=== PATIENT | male | born 1950 | race Caucasian/White ===

== ENCOUNTER 2016-11-30 05:42 | Inpatient (IN) | payer OTHER, MEDICAID ==
[2016-11-30 08:34] LABS: BASOPHILS # (AUTO) 0.1 X10^3/uL (0.0-0.1); BASOPHILS % (AUTO) 0.8 % (0.2-1.0); EOSINOPHILS # (AUTO) 0.1 x10^3/uL (0.0-0.2); EOSINOPHILS % (AUTO) 0.6 % (0.9-2.9); HEMATOCRIT 30.9 % (42.0-54.0); HEMOGLOBIN 9.8 g/dL (13.5-18.0); LYMPHOCYTES # (AUTO) 1.3 X10^3/uL (1.3-2.9); LYMPHOCYTES % (AUTO) 8.8 % (21.0-51.0); MEAN CORPUSCULAR HEMOGLOBIN 24.8 pg (27.0-34.0); MEAN CORPUSCULAR HGB CONC 31.8 g/dL (33.0-35.0); MEAN CORPUSCULAR VOLUME 78.1 fL (80.0-100.0); MEAN PLATELET VOLUME 8.2 fL (7.4-11.0); MONOCYTES # (AUTO) 1.1 x10^3/uL (0.3-0.8); MONOCYTES % (AUTO) 7.2 % (0.0-13.0); NEUTROPHILS # (AUTO) 12.7 x10^3/uL (2.2-4.8); NEUTROPHILS % (AUTO) 82.6 % (42.0-75.0); PLATELET COUNT 364 X10^3/uL (150.0-450.0); RED BLOOD COUNT 3.96 X10^6/uL (4.7-6.0); RED CELL DISTRIBUTION WIDTH 16.7 % (11.6-16.5); WHITE BLOOD COUNT 15.3 X10^3/uL (3.6-10.0)
[2016-11-30 08:43] LABS: ALBUMIN 2.6 g/dL (3.4-5.0); CALCIUM 9.6 mg/dL (8.5-10.1); COR CA(FOR HYPOALB) 10.7 mg/dL (8.5-10.1); CREATININE 5.71 mg/dL (0.70-1.30); TOTAL PROTEIN 9.3 g/dL (6.4-8.2)
[2016-11-30 08:46] LABS: MICROCYTOSIS SLIGHT; PLATELET MORPHOLOGY COMMENT NORMAL (NORMAL); STOMATOCYTES PRESENT
[2016-11-30] MEDS: NS 1000 ML 1,000 ML IV SCH ×2 (08:52→20:45)
[2016-11-30 09:20] LABS: CARBON DIOXIDE 14.6 mmol/L (21-32)
[2016-11-30 12:46] LABS: BILIRUBIN,URINE NEGATIVE (NEGATIVE); BLOOD/HEMOGLOBIN,URINE 5+ (NEGATIVE); GLUCOSE, URINE 3+ (NEGATIVE); KETONES,URINE NEGATIVE (NEGATIVE); LEUKOCYTE ESTERASE ,URINE 3+ (NEGATIVE); NITRITES,URINE NEGATIVE (NEGATIVE); PROTEIN,URINE 3+ (NEGATIVE); UROBILINOGEN,URINE NORMAL (NORMAL)
[2016-11-30] MEDS ORDERED: [UNRECOGNIZED DRUG - OTHER] PO PRN (12:56)
[2016-11-30] MEDS ORDERED: HUMULIN R SUBCUT PRN (13:02)
[2016-11-30] MEDS: HUMULIN R SC PRN ×3 (13:03→20:51)
[2016-11-30 13:06] LABS: AMORPHOUS SEDIMENT,UR 3+ /HPF (NEGATIVE); APPEARANCE,URINE CLOUDY (CLEAR); BACTERIA,URINE 1+ /HPF (NEGATIVE); COLOR,URINE YELLOW (YELLOW); RBC,URINE 50 - 75 /HPF (NEGATIVE); SQUAMOUS EPITHELIAL CELL,UR RARE /HPF (NEGATIVE)
[2016-11-30 13:07] LABS: MUCUS,URINE MODERATE /HPF (NEGATIVE)
[2016-11-30] MEDS: KLONOPIN TAB 0.5 MG PO PRN (13:27)
[2016-11-30] MEDS: NORCO 5/325 MG TAB PO PRN ×2 (13:27→20:44)
[2016-11-30] MEDS: PRILOSEC PO SCH (13:27)
[2016-11-30] MEDS: NICODERM PATCH 21 MG/24 HR TD SCH (13:30)
[2016-11-30] MEDS ORDERED: TOBRAMYCIN SULFATE 80 MG in NS 100 ML IV 100 ML IV ONE (19:39)
[2016-11-30] MEDS: ROCEPHIN VIAL 1 GM 1 GM in NS 50 ML IV + SPIKE MINIBAG* 50 ML IV SCH (20:42)
[2016-11-30] MEDS: REMERON PO SCH (20:44)
[2016-11-30] MEDS: SNACK - Diabetic Appropriate PO SCH (20:48)
[2016-11-30] MEDS: PATIENT'S HOME MEDICATION RESPIRATORY (Melatonin [Melatonin] 3 MG) PO SCH (20:53)
[2016-12-01] MEDS: KLONOPIN TAB 0.5 MG PO PRN ×3 (01:41→21:52)
[2016-12-01 06:31] LABS: BASOPHILS # (AUTO) 0.1 X10^3/uL (0.0-0.1); BASOPHILS % (AUTO) 0.4 % (0.2-1.0); EOSINOPHILS # (AUTO) 0.1 x10^3/uL (0.0-0.2); EOSINOPHILS % (AUTO) 0.6 % (0.9-2.9); HEMATOCRIT 27.4 % (42.0-54.0); HEMOGLOBIN 9.1 g/dL (13.5-18.0); LYMPHOCYTES # (AUTO) 1.1 X10^3/uL (1.3-2.9); MEAN CORPUSCULAR HEMOGLOBIN 25.5 pg (27.0-34.0); MEAN CORPUSCULAR HGB CONC 33.3 g/dL (33.0-35.0); MEAN CORPUSCULAR VOLUME 76.7 fL (80.0-100.0); MONOCYTES % (AUTO) 6.6 % (0.0-13.0); NEUTROPHILS # (AUTO) 12.9 x10^3/uL (2.2-4.8); NEUTROPHILS % (AUTO) 85.4 % (42.0-75.0); PLATELET COUNT 294 X10^3/uL (150.0-450.0); RED BLOOD COUNT 3.58 X10^6/uL (4.7-6.0); RED CELL DISTRIBUTION WIDTH 16.2 % (11.6-16.5); WHITE BLOOD COUNT 15.1 X10^3/uL (3.6-10.0)
[2016-12-01 06:52] LABS: ALBUMIN 2.4 g/dL (3.4-5.0); COR CA(FOR HYPOALB) 10.3 mg/dL (8.5-10.1); CREATININE 4.5 mg/dL (0.70-1.30); TOTAL PROTEIN 8.5 g/dL (6.4-8.2)
[2016-12-01 07:06] LABS: CARBON DIOXIDE 14.2 mmol/L (21-32)
[2016-12-01 07:25] LABS: HYPOCHROMASIA SLIGHT; PLATELET MORPHOLOGY COMMENT NORMAL (NORMAL)
[2016-12-01] MEDS: ROCEPHIN VIAL 1 GM 1 GM in NS 50 ML IV + SPIKE MINIBAG* 50 ML IV SCH (08:40)
[2016-12-01] MEDS: NORCO 5/325 MG TAB PO PRN ×2 (08:40→21:53)
[2016-12-01] MEDS: PRILOSEC PO SCH (08:40)
[2016-12-01] MEDS: NICODERM PATCH 21 MG/24 HR TD SCH (08:41)
--- NOTE | 2016-12-01 09:07 | CT ---
CT abdomen and pelvis without contrast Indication: Acute renal failure, dehydration, abdominal pain. Comparison: None Technique: CT images of the abdomen and pelvis were obtained without contrast. Automatic exposure co ntrol was utilized. Findings: Evaluation of the abdominal viscera is limited by lack of contrast and motion artifact. The visualized lung bases are clear. No aggressive osseous lesion is identified. The liver, gallbladder, spleen, stomach, duodenum, pancreas, adrenals, and kidneys demonstrate no si gnificant abnormality. No nephrolithiasis or hydronephrosis identified. A few mildly enlarged left p eriaortic lymph nodes are noted (for example axial images 19 and 25) , measuring approximately 1.1 c m in short axis. There is moderate distal colonic stool burden, although there is no evidence for shane wel obstruction. The urinary bladder is mostly collapsed around a Valentin catheter; nondependent bladd er gas is consistent with catheterization. No significant free fluid is seen. There is aortoiliac at herosclerosis, without evidence for aneurysm. Impression: 1. No acute process identified. There is moderate distal colonic stool burden. 2. Mildly enlarged periaortic lymph nodes, of uncertain etiology. Reported By:
--- NOTE | 2016-12-01 10:31 | US ---
Limited abdominal ultrasound Indication: Abdominal pain. Comparison: None Technique: Sonographic images of the abdomen were obtained. Findings: There is no cholelithiasis, gallbladder distention, wall thickening, or pericholecystic fl uid. No biliary dilation is observed; the common duct measured 4 mm in diameter. The visualized port ions of the liver, right kidney, and pancreas were unremarkable. Impression: Normal right upper quadrant ultrasound. Reported By:
[2016-12-01] MEDS: HUMULIN R SC PRN ×2 (12:17→17:30)
[2016-12-01] MEDS: NS 1000 ML 1,000 ML IV SCH (17:09)
[2016-12-01] MEDS ORDERED: TOPROL XL PO ONE (17:24)
[2016-12-01] MEDS: KAYEXALATE PO SCH ×2 (17:35→21:54)
[2016-12-01] MEDS: TOPROL XL PO SCH (17:36)
[2016-12-01] MEDS ORDERED: CELEXA PO SCH (21:00)
[2016-12-01] MEDS: REMERON PO SCH (21:53)
[2016-12-01] MEDS: CELEXA PO SCH (21:53)
[2016-12-01] MEDS: PATIENT'S HOME MEDICATION RESPIRATORY (Melatonin [Melatonin] 3 MG) PO SCH (21:54)
[2016-12-01] MEDS: SNACK - Diabetic Appropriate PO SCH (21:54)
[2016-12-02 05:50] LABS: ALBUMIN 2.4 g/dL (3.4-5.0); CALCIUM 9.2 mg/dL (8.5-10.1); COR CA(FOR HYPOALB) 10.5 mg/dL (8.5-10.1); CREATININE 3.71 mg/dL (0.70-1.30); TOTAL PROTEIN 8.6 g/dL (6.4-8.2)
[2016-12-02 05:51] LABS: BASOPHILS # (AUTO) 0.1 X10^3/uL (0.0-0.1); BASOPHILS % (AUTO) 1.1 % (0.2-1.0); EOSINOPHILS # (AUTO) 0.1 x10^3/uL (0.0-0.2); EOSINOPHILS % (AUTO) 1.2 % (0.9-2.9); HEMATOCRIT 28.2 % (42.0-54.0); HEMOGLOBIN 9.4 g/dL (13.5-18.0); LYMPHOCYTES # (AUTO) 1.2 X10^3/uL (1.3-2.9); LYMPHOCYTES % (AUTO) 10.3 % (21.0-51.0); MEAN CORPUSCULAR HEMOGLOBIN 25.5 pg (27.0-34.0); MEAN CORPUSCULAR HGB CONC 33.3 g/dL (33.0-35.0); MEAN CORPUSCULAR VOLUME 76.5 fL (80.0-100.0); MONOCYTES # (AUTO) 0.9 x10^3/uL (0.3-0.8); MONOCYTES % (AUTO) 7.7 % (0.0-13.0); NEUTROPHILS # (AUTO) 9.2 x10^3/uL (2.2-4.8); NEUTROPHILS % (AUTO) 79.7 % (42.0-75.0); PLATELET COUNT 327 X10^3/uL (150.0-450.0); RED BLOOD COUNT 3.68 X10^6/uL (4.7-6.0); RED CELL DISTRIBUTION WIDTH 16.2 % (11.6-16.5); WHITE BLOOD COUNT 11.6 X10^3/uL (3.6-10.0)
[2016-12-02 06:08] LABS: PLATELET MORPHOLOGY COMMENT NORMAL (NORMAL)
[2016-12-02 06:09] LABS: HYPOCHROMASIA SLIGHT
[2016-12-02 06:11] LABS: MICROCYTOSIS SLIGHT
[2016-12-02] MEDS: NS 1000 ML 1,000 ML IV SCH ×4 (06:18→21:17)
[2016-12-02] MEDS ORDERED: TOPROL XL PO ONE (08:19)
[2016-12-02] MEDS: KLONOPIN TAB 0.5 MG PO PRN ×2 (08:35→20:15)
[2016-12-02] MEDS: PRILOSEC PO SCH (08:35)
[2016-12-02] MEDS: ROCEPHIN VIAL 1 GM 1 GM in NS 50 ML IV + SPIKE MINIBAG* 50 ML IV SCH (08:35)
[2016-12-02] MEDS: NORCO 5/325 MG TAB PO PRN (08:35)
[2016-12-02] MEDS: TOPROL XL PO SCH (08:36)
[2016-12-02] MEDS: NICODERM PATCH 21 MG/24 HR TD SCH (08:36)
[2016-12-02] MEDS ORDERED: BUTT CREAM (COMPOUND) ONE (10:22)
[2016-12-02] MEDS ORDERED: BUTT CREAM (COMPOUND) TOP PRN (11:12)
--- NOTE | 2016-12-02 11:25 | DR.H&P ---
H&P - History & Physical for Day of: H&P Date: 11/30/16 - Chief Complaint Chief Complaint: Altered mental status - Allergies Allergies/Adverse Reactions: Allergies Allergy/AdvReac Type Severity Reaction Status Date / Time Codeine Allergy Verified 11/30/16 08:29 - History of Present Illness History of Present Illness: The patient is a 66-year-old white male who is a private patient and a longtime resident at [facility] in [facility]. The patient has a history of mild dementia and mild anxiety disorder. On the rehabilitation physician hours of 11/30/2016 the patient was noted to have marked altered mental status and agitated, mildly combative behavior. He was subsequently sent to the [facility] for further evaluation. The patient was noted to be in acute renal failure with a BUN/creatinine greater than 100 and a creatinine of approximately 6. The patient was subsequently directly admitted to the [facility]. At the time of admission patient was also noted to have a UTI as well as elevated LFTs. The possibility of sepsis is suspected. Patient was subsequently admitted for further workup. - Past Medical History Past Medical History: Anxiety, Dementia, Depression, Hypertension - Social History Does patient currently use any type of tobacco product: Yes Have you used tobacco products in the last 12 months: Yes Type of Tobacco Use: Cigarettes Does any household member use tobacco: No Alcohol Use: None Drug Use: Prescription Drugs - Medications Home Medications: Acetaminophen [Tylenol] 2 tabs PO Q6H PRN 11/30/16 [History Confirmed 11/30/16] Aspirin EC [ASPIRIN EC 81 MG *] 81 mg PO DAILY 11/30/16 [History Confirmed 11/30] Atorvastatin Calcium [Lipitor Tab 10 mg] 10 mg PO HS 11/30/16 [History Confirmed 11/30/16] Citalopram Hydrobromide [Celexa 10 mg] 10 mg PO HS 11/30/16 [History Confirmed 11/30/16] Clonazepam [Klonopin Tab 0.5 mg] 0.5 mg PO BID PRN 11/30/16 [History Confirmed 11/30/16] Ergocalciferol [Vitamin D] 50,000 unit PO Q7D 11/30/16 [History Confirmed ] Finasteride [Proscar] 5 mg PO DAILY 11/30/16 [History Confirmed 11/30/16] Glimepiride [Amaryl Tab 4 mg] 4 mg PO BID 11/30/16 [History Confirmed 11/30/16] Hydrocodone-Acet 5 mg/325 mg [NORCO 5 MG/325 MG *] 1 tab PO Q6H PRN 11/30/16 [ History Confirmed 11/30/16] Insulin Glargine (Lantus) [LANTUS INSULIN 10 ML VIAL *] 20 units SC HS 11/30/16 [History Confirmed 11/30/16] Insulin Regular (Human) [Novolin R (Regular) insulin 10 mL vial] 1 unit SC QAM PRN 11/30/16 [History Confirmed 11/30/16] Lisinopril 10 mg PO DAILY 11/30/16 [History Confirmed 11/30/16] Loratadine [Allergy] 10 mg PO DAILY 11/30/16 [History Confirmed 11/30/16] Melatonin 3 mg PO HS 11/30/16 [History Confirmed 11/30/16] Meloxicam [Mobic] 7.5 mg PO DAILY 11/30/16 [History Confirmed 11/30/16] Metformin HCl [Glucophage] 250 mg PO BID 11/30/16 [History Confirmed 11/30/16] Metoprolol Succinate Ext Rel [Toprol Xl] 100 mg PO DAILY 11/30/16 [History Confirmed 11/30/16] Mirtazapine [REMERON 15 MG *] 15 mg PO HS 11/30/16 [History Confirmed 11/30/16] Misc Home Med [Patient's Home Medication] 1 ea PO DAILY 11/30/16 [History Confirmed 11/30/16] Omeprazole [Prilosec] 20 mg PO DAILY 11/30/16 [History Confirmed 11/30/16] Tamsulosin HCl 0.4 mg PO HS 11/30/16 [History Confirmed 11/30/16] - Review of Systems Constitutional: See HPI Eyes: No Symptoms Reported ENT: No Symptoms Reported Respiratory: No Symptoms Reported Cardiovascular: No Symptoms Reported Gastrointestinal: No Symptoms Reported Genitourinary: No Symptoms Reported Musculoskeletal: No Symptoms Reported Skin: No Symptoms Reported Neurological: See HPI - Physical Exam Vital Signs: Temperature 97.8 F Pulse Rate [Left Brachial] 114 Respiratory Rate 20 Blood Pressure [Left Arm] 139/65 O2 Sat by Pulse Oximetry 96 Oriented: Normal Eyes: Normal Ear: Normal Nose: Normal Throat: Normal Respiratory: Clear Throughout Cardiovascular: Normal : Normal Auscultation: Bowel Sounds: Normal Palpation: Normal Tenderness: Normal Skin: Normal Musculoskeletal: Normal Psychiatric: Other (altered mental status compared with well normal baseline) Mood Description: Suspicious, Anxious Affect: Anxious Speech Pattern: Delayed - Assessment/Plan (1) Acute renal failure Qualifiers: Acute renal failure type: A Status: Acute Plan: 1. Admit for further workup. 2. Chest x-ray. 3. UA C&S. 4. Blood cultures 2 from separate sites. 5. CMP and CBC. 6. Aggressive IV fluid hydration. 7. Rocephin 1 g IV daily. 8. Tobramycin 80 mg IV 1 dose. 9. Closely monitor mental status. 10. Closely monitor renal function. 11. Repeat CMP and CBC in a.m. 12. CT scan of the abdomen and pelvis without contrast. 13. Gallbladder sonogram. 14. For further orders see chart (2) Altered mental status Qualifiers: Altered mental status type: A Coma depth: C Coma timing: C Status: Acute Plan: As above (3) Elevated liver function tests Status: Acute (4) Dehydration Status: Acute Plan: As above (5) UTI (urinary tract infection) Qualifiers: Urinary tract infection type: U Hematuria presence: H Indwelling urinary catheter type: I Encounter type: E Status: Acute Plan: As above.
[2016-12-02] MEDS: HUMULIN R SC PRN ×3 (12:58→21:00)
[2016-12-02 20:11] VITALS: BMI 21.4
[2016-12-02] MEDS: REMERON PO SCH (20:45)
[2016-12-02] MEDS: SNACK - Diabetic Appropriate PO SCH (20:45)
[2016-12-02] MEDS: CELEXA PO SCH (20:45)
[2016-12-02] MEDS: PATIENT'S HOME MEDICATION RESPIRATORY (Melatonin [Melatonin] 3 MG) PO SCH (21:16)
[2016-12-03 05:17] LABS: ALBUMIN 2.1 g/dL (3.4-5.0); CALCIUM 8.6 mg/dL (8.5-10.1); COR CA(FOR HYPOALB) 10.1 mg/dL (8.5-10.1); CREATININE 2.79 mg/dL (0.70-1.30); TOTAL PROTEIN 7.9 g/dL (6.4-8.2)
[2016-12-03 05:24] LABS: BASOPHILS # (AUTO) 0.1 X10^3/uL (0.0-0.1); BASOPHILS % (AUTO) 1.4 % (0.2-1.0); EOSINOPHILS # (AUTO) 0.2 x10^3/uL (0.0-0.2); EOSINOPHILS % (AUTO) 2.5 % (0.9-2.9); HEMOGLOBIN 9.4 g/dL (13.5-18.0); LYMPHOCYTES # (AUTO) 1.1 X10^3/uL (1.3-2.9); LYMPHOCYTES % (AUTO) 11.5 % (21.0-51.0); MEAN CORPUSCULAR HEMOGLOBIN 25.6 pg (27.0-34.0); MEAN CORPUSCULAR HGB CONC 33.5 g/dL (33.0-35.0); MEAN CORPUSCULAR VOLUME 76.4 fL (80.0-100.0); MEAN PLATELET VOLUME 7.8 fL (7.4-11.0); MONOCYTES # (AUTO) 0.5 x10^3/uL (0.3-0.8); MONOCYTES % (AUTO) 5.4 % (0.0-13.0); NEUTROPHILS # (AUTO) 7.9 x10^3/uL (2.2-4.8); NEUTROPHILS % (AUTO) 79.2 % (42.0-75.0); PLATELET COUNT 298 X10^3/uL (150.0-450.0); RED BLOOD COUNT 3.66 X10^6/uL (4.7-6.0); RED CELL DISTRIBUTION WIDTH 16.1 % (11.6-16.5)
[2016-12-03] MEDS: NS 1000 ML 1,000 ML IV SCH (05:49)
[2016-12-03 06:10] LABS: CRENATED RBC NOTED; HYPOCHROMASIA SLIGHT; MICROCYTOSIS SLIGHT; PLATELET MORPHOLOGY COMMENT NORMAL (NORMAL)
--- NOTE | 2016-12-03 06:57 | RAD ---
HISTORY: Dehydration Study: Chest one view Comparison: None Findings: The trachea is midline. The cardiac silhouette is unremarkable. The lungs are clear without focal infiltrate or effusion. The bony thorax is unremarkable. IMPRESSION: 1. No acute cardiopulmonary disease. Reported By:
[2016-12-03] MEDS ORDERED: TOPROL XL PO ONE (08:33)
--- NOTE | 2016-12-03 08:57 | PCM.PROG ---
Progress Note - Progress Note for Day of Date: 12/02/16 - Subjective Subjective: WEAKNESS, CONFUSION CONTINUED. HPI: PT IS 66 [address] ADMITTED PER DR DOE WITH ACUTE RENAL INSUFF, DEHYDRATION. PT RENAL FUNCTION IMPROVING WITH IV HYDRATION, IMPROVING ELECTROLYTE IMBALANCE. WILL REPEAT AM LABS, CONTINUE CURRENT MEDS - Past Medical Family Social History Past Med/Fam/Surg Hx: No changes since H&P Allergies: Allergies Codeine Allergy (Verified 11/30/16 08:29) - Review of Systems ROS: No change since H&P - Vital Signs and I&O's Vital Signs: Temperature 97.6 F Pulse Rate [Left Brachial] 76 Respiratory Rate 20 Blood Pressure [Left Arm] 150/69 O2 Sat by Pulse Oximetry 100 Intake and Output: Intake & Output 11/30/16 12/01/16 12/02/16 12/03/16 11:59 11:59 11:59 11:59 Intake Total 3143 2020 2825 Output Total 2350 2450 3300 Balance 994 -392 -253 - Physical Exam Oriented: Person Eyes: Normal Ear: Normal Nose: Normal Throat: Dry Respiratory: Diminished Cardiovascular: Normal : Normal Auscultation: Bowel Sounds: Normal Tenderness: Normal Skin: Normal Musculoskeletal: Back:Lumbar Psychiatric: Other (altered mental status compared with well normal baseline) Mood Description: Suspicious, Anxious Affect: Anxious Speech Pattern: Appropriate - Laboratory and Diagnostics Result Diagrams: 12/03/16 03:40 12/03/16 03:40 Labs: 11/30/16 11:01 Urine,Clean Catch Urine Culture - Final Escherichia Coli Laboratory WBC 10.0 X10^3/uL (3.6-10.0) 12/03/16 03:40 RBC 3.66 X10^6/uL (4.7-6.0) L 12/03/16 03:40 Hgb 9.4 g/dL (13.5-18.0) L 12/03/16 03:40 Hct 28.0 % (42.0-54.0) L 12/03/16 03:40 MCV 76.4 fL (80.0-100.0) L 12/03/16 03:40 MCH 25.6 pg (27.0-34.0) L 12/03/16 03:40 MCHC 33.5 g/dL (33.0-35.0) 12/03/16 03:40 RDW 16.1 % (11.6-16.5) 12/03/16 03:40 Plt Count 298 X10^3/uL (150.0-450.0) 12/03/16 03:40 Plt Count Comment Adequate (ADEQUATE) 12/03/16 03:40 MPV 7.8 fL (7.4-11.0) 12/03/16 03:40 Neut % 79.2 % (42.0-75.0) H 12/03/16 03:40 Lymph % 11.5 % (21.0-51.0) L 12/03/16 03:40 [place] % 5.4 % (0.0-13.0) 12/03/16 03:40 Eos % 2.5 % (0.9-2.9) 12/03/16 03:40 Baso % 1.4 % (0.2-1.0) H 12/03/16 03:40 Neut # 7.9 x10^3/uL (2.2-4.8) H 12/03/16 03:40 Lymph # 1.1 X10^3/uL (1.3-2.9) L 12/03/16 03:40 [place] # 0.5 x10^3/uL (0.3-0.8) 12/03/16 03:40 Eos # 0.2 x10^3/uL (0.0-0.2) 12/03/16 03:40 Baso # 0.1 X10^3/uL (0.0-0.1) 12/03/16 03:40 Absolute Nucleated RBC 0.0 /100WBC 12/03/16 03:40 Plt Morphology Comment Normal (NORMAL) 12/03/16 03:40 RBC Morphology Abnormal (NORMAL) 12/03/16 03:40 Hypochromasia Slight A 12/03/16 03:40 Microcytosis Slight A 12/03/16 03:40 Stomatocytes Present 11/30/16 08:15 Crenated Cell Noted 12/03/16 03:40 Sodium 144 mmol/L (136-145) 12/03/16 03:40 Corrected Sodium 146 mmol/L (136-145) H 12/03/16 03:40 Potassium 3.2 mmol/L (3.5-5.1) L 12/03/16 03:40 Chloride 111 mmol/L (98-107) H 12/03/16 03:40 Carbon Dioxide 16.0 mmol/L (21-32) L 12/03/16 03:40 BUN 48 mg/dL (7-18) H 12/03/16 03:40 Creatinine 2.79 mg/dL (0.70-1.30) H 12/03/16 03:40 Est GFR (MDRD) Af Amer 29 (>60) L 12/03/16 03:40 Est GFR (MDRD) Non-Af 24 (>60) L 12/03/16 03:40 Glucose 179 mg/dL (65-99) H 12/03/16 03:40 Calcium 8.6 mg/dL (8.5-10.1) 12/03/16 03:40 Corrected Calcium 10.1 mg/dL (8.5-10.1) 12/03/16 03:40 Iron 43 ug/dL (50-175) L 12/02/16 11:06 TIBC 172 ug/dL (250-450) L 12/02/16 11:06 % Saturation 25.0 % (11.0-46.0) 12/02/16 11:06 Ferritin 637 ng/mL (26-388) H 12/02/16 11:06 Total Bilirubin 0.50 mg/dL (0.2-1.0) 12/03/16 03:40 AST 97 Units/L (15-37) H 12/03/16 03:40 ALT 123 Units/L (12-78) H 12/03/16 03:40 Alkaline Phosphatase 331 Units/L (46-116) H 12/03/16 03:40 Ammonia 31 umol/L (11-32) 12/02/16 11:06 Total Protein 7.9 g/dL (6.4-8.2) 12/03/16 03:40 Albumin 2.1 g/dL (3.4-5.0) L 12/03/16 03:40 Globulin 5.8 g/dL (2.5-4.5) H 12/03/16 03:40 Albumin/Globulin Ratio 0.4 Ratio (1.1-2.1) L 12/03/16 03:40 Vitamin B12 579 pg/mL (193-986) 12/02/16 11:06 Folate 11.6 ng/mL (>8.6) 12/02/16 11:06 Specimen Type Catherized urine 11/30/16 11:01 Urine Color Yellow (YELLOW) 11/30/16 11:01 Urine Appearance Cloudy (CLEAR) 11/30/16 11:01 Urine pH 6.0 (5.0 - 8.0) 11/30/16 11:01 Ur Specific [place] 1.010 (1.000-1.030) 11/30/16 11:01 Urine Protein 3+ (NEGATIVE) 11/30/16 11:01 Urine Glucose (UA) 3+ (NEGATIVE) 11/30/16 11:01 Urine Ketones Negative (NEGATIVE) 11/30/16 11:01 Urine Occult Blood 5+ (NEGATIVE) 11/30/16 11:01 Urine Nitrite Negative (NEGATIVE) 11/30/16 11:01 Urine Bilirubin Negative (NEGATIVE) 11/30/16 11:01 Urine Urobilinogen Normal (NORMAL) 11/30/16 11:01 Ur Leukocyte Esterase 3+ (NEGATIVE) 11/30/16 11:01 Urine RBC 50 - 75 /HPF (NEGATIVE) 11/30/16 11:01 Urine WBC Tntc /HPF (NEGATIVE) 11/30/16 11:01 Ur Squamous Epith Cells Rare /HPF (NEGATIVE) 11/30/16 11:01 Amorphous Sediment 3+ /HPF (NEGATIVE) 11/30/16 11:01 Urine Bacteria 1+ /HPF (NEGATIVE) 11/30/16 11:01 Urine Mucus Moderate /HPF (NEGATIVE) 11/30/16 11:01 Ur Culture Indicated? Yes/culture set up 11/30/16 11:01 - Plan (1) Acute renal failure Status: Acute Qualifiers: Acute renal failure type: A Plan: CONTINUE IV HYDRATION, REPEAT AM LABS. CONTINUE CURRENT MEDICATION, ROUTINE VITALS, SKIN ASSESSMENT. DEWITT CATH CARE (2) Altered mental status Status: Acute Qualifiers: Altered mental status type: A Coma depth: C Coma timing: C Plan: As above (3) Dehydration Status: Acute Plan: As above (4) UTI (urinary tract infection) Status: Acute Qualifiers: Urinary tract infection type: U Hematuria presence: H Indwelling urinary catheter type: I Encounter type: E Plan: As above.
[2016-12-03] MEDS: PRILOSEC PO SCH (10:12)
[2016-12-03] MEDS: NICODERM PATCH 21 MG/24 HR TD SCH (10:12)
[2016-12-03] MEDS: TOPROL XL PO SCH (10:12)
[2016-12-03] MEDS: ROCEPHIN VIAL 1 GM 1 GM in NS 50 ML IV + SPIKE MINIBAG* 50 ML IV SCH (10:13)
[2016-12-03] MEDS ORDERED: NS 1/2 1000 ML IV 1,000 ML IV ONE ×2 (10:16→22:56)
[2016-12-03] MEDS: NS 1/2 1000 ML IV 1,000 ML IV SCH (11:38)
[2016-12-03] MEDS: HUMULIN R SC PRN ×3 (13:12→20:46)
[2016-12-03] MEDS: NORCO 5/325 MG TAB PO PRN (19:28)
[2016-12-03] MEDS: CELEXA PO SCH (20:14)
[2016-12-03] MEDS: REMERON PO SCH (20:14)
[2016-12-03] MEDS: PATIENT'S HOME MEDICATION RESPIRATORY (Melatonin [Melatonin] 3 MG) PO SCH (20:16)
[2016-12-03] MEDS: SNACK - Diabetic Appropriate PO SCH (20:56)
[2016-12-04] MEDS: NS 1/2 1000 ML IV 1,000 ML IV SCH ×3 (00:17→12:29)
[2016-12-04 05:23] LABS: BASOPHILS # (AUTO) 0.1 X10^3/uL (0.0-0.1); BASOPHILS % (AUTO) 1.1 % (0.2-1.0); EOSINOPHILS # (AUTO) 0.3 x10^3/uL (0.0-0.2); EOSINOPHILS % (AUTO) 2.9 % (0.9-2.9); HEMATOCRIT 30.7 % (42.0-54.0); HEMOGLOBIN 10.1 g/dL (13.5-18.0); LYMPHOCYTES # (AUTO) 1.5 X10^3/uL (1.3-2.9); LYMPHOCYTES % (AUTO) 13.4 % (21.0-51.0); MEAN CORPUSCULAR HEMOGLOBIN 25.4 pg (27.0-34.0); MEAN CORPUSCULAR VOLUME 76.9 fL (80.0-100.0); MEAN PLATELET VOLUME 7.7 fL (7.4-11.0); MONOCYTES # (AUTO) 0.6 x10^3/uL (0.3-0.8); MONOCYTES % (AUTO) 5.2 % (0.0-13.0); NEUTROPHILS # (AUTO) 8.4 x10^3/uL (2.2-4.8); NEUTROPHILS % (AUTO) 77.4 % (42.0-75.0); PLATELET COUNT 302 X10^3/uL (150.0-450.0); RED BLOOD COUNT 3.99 X10^6/uL (4.7-6.0); RED CELL DISTRIBUTION WIDTH 16.6 % (11.6-16.5); WHITE BLOOD COUNT 10.9 X10^3/uL (3.6-10.0)
[2016-12-04 05:29] LABS: ALBUMIN 2.1 g/dL (3.4-5.0); CALCIUM 8.3 mg/dL (8.5-10.1); CARBON DIOXIDE 18.3 mmol/L (21-32); COR CA(FOR HYPOALB) 9.8 mg/dL (8.5-10.1); CREATININE 2.54 mg/dL (0.70-1.30); TOTAL PROTEIN 8.3 g/dL (6.4-8.2)
[2016-12-04 05:57] LABS: ANISOCYTOSIS SLIGHT; HYPOCHROMASIA SLIGHT; MICROCYTOSIS SLIGHT; PLATELET MORPHOLOGY COMMENT NORMAL (NORMAL)
[2016-12-04] MEDS: HUMULIN R SC PRN ×4 (06:41→20:59)
[2016-12-04] MEDS ORDERED: TOPROL XL PO ONE (08:59)
[2016-12-04] MEDS: NICODERM PATCH 21 MG/24 HR TD SCH (09:43)
[2016-12-04] MEDS: PRILOSEC PO SCH (09:44)
[2016-12-04] MEDS: ROCEPHIN VIAL 1 GM 1 GM in NS 50 ML IV + SPIKE MINIBAG* 50 ML IV SCH (09:45)
[2016-12-04] MEDS: TOPROL XL PO SCH (09:45)
[2016-12-04] MEDS ORDERED: NS 1/2 1000 ML IV 1,000 ML IV ONE (12:10)
--- NOTE | 2016-12-04 17:59 | PCM.PROG ---
Progress Note - Progress Note for Day of Date: 12/03/16 - Subjective Subjective: WEAKNESS, CONFUSION IMPROVING, PT MORE ACTIVE AND ALERT, GOOD APPETITE. DISCUSSED D/C TO PRISON TOMORROW IF PT CONTINUES TO IMPROVED. HPI: PT IS 66 WM ADMITTED PER DR DOE WITH ACUTE RENAL INSUFF, DEHYDRATION. PT RENAL FUNCTION IMPROVING WITH IV HYDRATION, IMPROVING ELECTROLYTE IMBALANCE. WILL REPEAT AM LABS, CONTINUE CURRENT MEDS - Past Medical Family Social History Past Med/Fam/Surg Hx: No changes since H&P Allergies: Allergies Codeine Allergy (Verified 11/30/16 08:29) - Review of Systems ROS: No change since H&P - Vital Signs and I&O's Vital Signs: Temperature 98.1 F Pulse Rate [Left Brachial] 68 Respiratory Rate 18 Blood Pressure [Left Arm] 131/66 O2 Sat by Pulse Oximetry 96 Intake and Output: Intake & Output 12/02/16 12/03/16 12/04/16 12/05/16 11:59 11:59 11:59 11:59 Intake Total 2019 2825 3120 780 Output Total 2450 3300 3875 1250 Balance -430 -475 -755 -470 - Physical Exam Oriented: Person Eyes: Normal Ear: Normal Nose: Normal Throat: Dry Respiratory: Diminished Cardiovascular: Normal : Normal Auscultation: Bowel Sounds: Normal Tenderness: Normal Skin: Normal Musculoskeletal: Back:Lumbar Psychiatric: Other (altered mental status compared with well normal baseline) Mood Description: Suspicious, Anxious Affect: Anxious Speech Pattern: Appropriate - Laboratory and Diagnostics Result Diagrams: 12/04/16 03:40 12/04/16 03:40 Labs: 11/30/16 11:01 Urine,Clean Catch Urine Culture - Final Escherichia Coli Laboratory WBC 10.9 X10^3/uL (3.6-10.0) H 12/04/16 03:40 RBC 3.99 X10^6/uL (4.7-6.0) L 12/04/16 03:40 Hgb 10.1 g/dL (13.5-18.0) L 12/04/16 03:40 Hct 30.7 % (42.0-54.0) L 12/04/16 03:40 MCV 76.9 fL (80.0-100.0) L 12/04/16 03:40 MCH 25.4 pg (27.0-34.0) L 12/04/16 03:40 MCHC 33.0 g/dL (33.0-35.0) 12/04/16 03:40 RDW 16.6 % (11.6-16.5) H 12/04/16 03:40 Plt Count 302 X10^3/uL (150.0-450.0) 12/04/16 03:40 Plt Count Comment Adequate (ADEQUATE) 12/04/16 03:40 MPV 7.7 fL (7.4-11.0) 12/04/16 03:40 Neut % 77.4 % (42.0-75.0) H 12/04/16 03:40 Lymph % 13.4 % (21.0-51.0) L 12/04/16 03:40 [place] % 5.2 % (0.0-13.0) 12/04/16 03:40 Eos % 2.9 % (0.9-2.9) 12/04/16 03:40 Baso % 1.1 % (0.2-1.0) H 12/04/16 03:40 Neut # 8.4 x10^3/uL (2.2-4.8) H 12/04/16 03:40 Lymph # 1.5 X10^3/uL (1.3-2.9) 12/04/16 03:40 [place] # 0.6 x10^3/uL (0.3-0.8) 12/04/16 03:40 Eos # 0.3 x10^3/uL (0.0-0.2) H 12/04/16 03:40 Baso # 0.1 X10^3/uL (0.0-0.1) 12/04/16 03:40 Absolute Nucleated RBC 0.1 /100WBC 12/04/16 03:40 Plt Morphology Comment Normal (NORMAL) 12/04/16 03:40 RBC Morphology Abnormal (NORMAL) 12/04/16 03:40 Hypochromasia Slight A 12/04/16 03:40 Anisocytosis Slight A 12/04/16 03:40 Microcytosis Slight A 12/04/16 03:40 Stomatocytes Present 11/30/16 08:15 Crenated Cell Noted 12/03/16 03:40 Sodium 133 mmol/L (136-145) L 12/04/16 03:40 Corrected Sodium 137 mmol/L (136-145) 12/04/16 03:40 Potassium 3.2 mmol/L (3.5-5.1) L 12/04/16 03:40 Chloride 101 mmol/L (98-107) 12/04/16 03:40 Carbon Dioxide 18.3 mmol/L (21-32) L 12/04/16 03:40 BUN 40 mg/dL (7-18) H 12/04/16 03:40 Creatinine 2.54 mg/dL (0.70-1.30) H 12/04/16 03:40 Est GFR (MDRD) Af Amer 33 (>60) L 12/04/16 03:40 Est GFR (MDRD) Non-Af 27 (>60) L 12/04/16 03:40 Glucose 255 mg/dL (65-99) H 12/04/16 03:40 Calcium 8.3 mg/dL (8.5-10.1) L 12/04/16 03:40 Corrected Calcium 9.8 mg/dL (8.5-10.1) 12/04/16 03:40 Iron 43 ug/dL (50-175) L 12/02/16 11:06 TIBC 172 ug/dL (250-450) L 12/02/16 11:06 % Saturation 25.0 % (11.0-46.0) 12/02/16 11:06 Ferritin 637 ng/mL (26-388) H 12/02/16 11:06 Total Bilirubin 0.50 mg/dL (0.2-1.0) 12/04/16 03:40 AST 106 Units/L (15-37) H 12/04/16 03:40 ALT 146 Units/L (12-78) H 12/04/16 03:40 Alkaline Phosphatase 349 Units/L (46-116) H 12/04/16 03:40 Ammonia 31 umol/L (11-32) 12/02/16 11:06 Total Protein 8.3 g/dL (6.4-8.2) H 12/04/16 03:40 Albumin 2.1 g/dL (3.4-5.0) L 12/04/16 03:40 Globulin 6.2 g/dL (2.5-4.5) H 12/04/16 03:40 Albumin/Globulin Ratio 0.3 Ratio (1.1-2.1) L 12/04/16 03:40 Vitamin B12 579 pg/mL (193-986) 12/02/16 11:06 Folate 11.6 ng/mL (>8.6) 12/02/16 11:06 Specimen Type Catherized urine 11/30/16 11:01 Urine Color Yellow (YELLOW) 11/30/16 11:01 Urine Appearance Cloudy (CLEAR) 11/30/16 11:01 Urine pH 6.0 (5.0 - 8.0) 11/30/16 11:01 Ur Specific [place] 1.010 (1.000-1.030) 11/30/16 11:01 Urine Protein 3+ (NEGATIVE) 11/30/16 11:01 Urine Glucose (UA) 3+ (NEGATIVE) 11/30/16 11:01 Urine Ketones Negative (NEGATIVE) 11/30/16 11:01 Urine Occult Blood 5+ (NEGATIVE) 11/30/16 11:01 Urine Nitrite Negative (NEGATIVE) 11/30/16 11:01 Urine Bilirubin Negative (NEGATIVE) 11/30/16 11:01 Urine Urobilinogen Normal (NORMAL) 11/30/16 11:01 Ur Leukocyte Esterase 3+ (NEGATIVE) 11/30/16 11:01 Urine RBC 50 - 75 /HPF (NEGATIVE) 11/30/16 11:01 Urine WBC Tntc /HPF (NEGATIVE) 11/30/16 11:01 Ur Squamous Epith Cells Rare /HPF (NEGATIVE) 11/30/16 11:01 Amorphous Sediment 3+ /HPF (NEGATIVE) 11/30/16 11:01 Urine Bacteria 1+ /HPF (NEGATIVE) 11/30/16 11:01 Urine Mucus Moderate /HPF (NEGATIVE) 11/30/16 11:01 Ur Culture Indicated? Yes/culture set up 11/30/16 11:01 Stool Description 5 g formed,brown 12/03/16 23:30 Stl Occult Blood (IFOB) Negative (NEGATIVE) 12/03/16 23:30 - Plan (1) Acute renal failure Status: Acute Qualifiers: Acute renal failure type: A Plan: CONTINUE IV HYDRATION, REPEAT AM LABS. CONTINUE CURRENT MEDICATION, ROUTINE VITALS, SKIN ASSESSMENT. DEWITT CATH CARE (2) Altered mental status Status: Acute Qualifiers: Altered mental status type: A Coma depth: C Coma timing: C Plan: As above (3) Dehydration Status: Acute Plan: As above (4) UTI (urinary tract infection) Status: Acute Qualifiers: Urinary tract infection type: U Hematuria presence: H Indwelling urinary catheter type: I Encounter type: E Plan: As above.
[2016-12-04] MEDS: CELEXA PO SCH (20:41)
[2016-12-04] MEDS: KLONOPIN TAB 0.5 MG PO PRN (20:41)
[2016-12-04] MEDS: REMERON PO SCH (20:41)
[2016-12-04] MEDS: PATIENT'S HOME MEDICATION RESPIRATORY (Melatonin [Melatonin] 3 MG) PO SCH (20:45)
[2016-12-04] MEDS: SNACK - Diabetic Appropriate PO SCH (20:46)
[2016-12-05] MEDS: NORCO 5/325 MG TAB PO PRN (00:12)
[2016-12-05] MEDS: KLONOPIN TAB 0.5 MG PO PRN (00:12)
[2016-12-05] MEDS ORDERED: NS 1/2 1000 ML IV 1,000 ML IV ONE ×2 (02:07→14:31)
[2016-12-05] MEDS: NS 1/2 1000 ML IV 1,000 ML IV SCH ×2 (02:15→14:35)
[2016-12-05 05:30] LABS: BASOPHILS # (AUTO) 0.1 X10^3/uL (0.0-0.1); BASOPHILS % (AUTO) 1.2 % (0.2-1.0); EOSINOPHILS # (AUTO) 0.3 x10^3/uL (0.0-0.2); EOSINOPHILS % (AUTO) 2.8 % (0.9-2.9); HEMATOCRIT 28.1 % (42.0-54.0); HEMOGLOBIN 9.3 g/dL (13.5-18.0); LYMPHOCYTES # (AUTO) 1.4 X10^3/uL (1.3-2.9); LYMPHOCYTES % (AUTO) 15.2 % (21.0-51.0); MEAN CORPUSCULAR HEMOGLOBIN 25.5 pg (27.0-34.0); MEAN CORPUSCULAR HGB CONC 33.1 g/dL (33.0-35.0); MEAN CORPUSCULAR VOLUME 76.9 fL (80.0-100.0); MEAN PLATELET VOLUME 7.8 fL (7.4-11.0); MONOCYTES # (AUTO) 0.5 x10^3/uL (0.3-0.8); MONOCYTES % (AUTO) 5.9 % (0.0-13.0); NEUTROPHILS # (AUTO) 6.8 x10^3/uL (2.2-4.8); NEUTROPHILS % (AUTO) 74.9 % (42.0-75.0); PLATELET COUNT 248 X10^3/uL (150.0-450.0); RED BLOOD COUNT 3.66 X10^6/uL (4.7-6.0); RED CELL DISTRIBUTION WIDTH 16.4 % (11.6-16.5); WHITE BLOOD COUNT 9.1 X10^3/uL (3.6-10.0)
[2016-12-05 05:40] LABS: CARBON DIOXIDE 17.5 mmol/L (21-32); COR CA(FOR HYPOALB) 9.6 mg/dL (8.5-10.1); CREATININE 2.33 mg/dL (0.70-1.30); TOTAL PROTEIN 7.3 g/dL (6.4-8.2)
[2016-12-05] MEDS: HUMULIN R SC PRN ×3 (05:51→16:55)
[2016-12-05 06:00] LABS: HYPOCHROMASIA SLIGHT; MICROCYTOSIS SLIGHT; PLATELET MORPHOLOGY COMMENT NORMAL (NORMAL)
--- NOTE | 2016-12-05 06:18 | RAD ---
HISTORY: Dehydration Study: Chest one view Comparison: December 03, 2016 Findings: The patient is rotated slightly to the right. The heart is within normal limits in size. The abhi ar e normal. The lungs are mildly hypoinflated but free of acute alveolar infiltrates. No pleural effus ions are identified. The bony thorax is unremarkable. IMPRESSION: Lungs mildly hypoinflated but clear Reported By:
[2016-12-05] MEDS ORDERED: TOPROL XL PO ONE (07:51)
[2016-12-05] MEDS: ROCEPHIN VIAL 1 GM 1 GM in NS 50 ML IV + SPIKE MINIBAG* 50 ML IV SCH (09:02)
[2016-12-05] MEDS: PRILOSEC PO SCH (09:02)
[2016-12-05] MEDS: NICODERM PATCH 21 MG/24 HR TD SCH (09:02)
[2016-12-05] MEDS: TOPROL XL PO SCH (09:02)
[2016-12-05 16:06] VITALS: BP 123/60
== END 2016-12-05 17:10 | DRG 683 ==
LOC: MED/SURG 05:42
PROVIDERS: ADMIT Internal Medicine; ATTEND Internal Medicine
DX: N17.8 Other acute kidney failure (principal); R41.82 Altered mental status, unspecified; N39.0 Urinary tract infection, site not specified; E86.0 Dehydration; B96.29 Other Escherichia coli [E. coli] as the cause of diseases classified elsewhere; R94.5 Abnormal results of liver function studies; F41.8 Other specified anxiety disorders; F32.89 Other specified depressive episodes; I12.9 Hypertensive chronic kidney disease with stage 1 through stage 4 chronic kidney disease, or unspecified chronic kidney disease; R26.89 Other abnormalities of gait and mobility; Z78.1 Physical restraint status
CPT/HCPCS: 36415; 71010; 74176; 76705; 80053; 81001; 82140; 82270; 82607; 82728; 82746; 82947; 83540; 83550; 85025; 87086; 87088; 87186; 97535; A4222; J0696; J1815; J3260

== ENCOUNTER 2017-01-16 20:14 | Inpatient (IN) | payer OTHER, MEDICAID ==
[2017-01-16] MEDS ORDERED: NS 1000 ML 1,000 ML IV ONE (21:05)
[2017-01-16] MEDS ORDERED: ROCEPHIN VIAL 2 GM 2 GM in NS 50 ML IV + SPIKE MINIBAG* 50 ML IV ONE (21:07)
[2017-01-16 21:47] LABS: BASOPHILS # (AUTO) 0.1 X10^3/uL (0.0-0.1); BASOPHILS % (AUTO) 0.7 % (0.2-1.0); EOSINOPHILS # (AUTO) 0.2 x10^3/uL (0.0-0.2); EOSINOPHILS % (AUTO) 2.4 % (0.9-2.9); HEMATOCRIT 31.4 % (42.0-54.0); HEMOGLOBIN 10.4 g/dL (13.5-18.0); LYMPHOCYTES # (AUTO) 0.9 X10^3/uL (1.3-2.9); LYMPHOCYTES % (AUTO) 9.2 % (21.0-51.0); MEAN CORPUSCULAR HEMOGLOBIN 26.7 pg (27.0-34.0); MEAN CORPUSCULAR HGB CONC 33.1 g/dL (33.0-35.0); MEAN CORPUSCULAR VOLUME 80.6 fL (80.0-100.0); MEAN PLATELET VOLUME 8.9 fL (7.4-11.0); MONOCYTES # (AUTO) 0.7 x10^3/uL (0.3-0.8); MONOCYTES % (AUTO) 7.2 % (0.0-13.0); NEUTROPHILS # (AUTO) 8.2 x10^3/uL (2.2-4.8); NEUTROPHILS % (AUTO) 80.5 % (42.0-75.0); PLATELET COUNT 189 X10^3/uL (150.0-450.0); WHITE BLOOD COUNT 10.2 X10^3/uL (3.6-10.0)
[2017-01-16 21:54] LABS: BILIRUBIN,URINE NEGATIVE (NEGATIVE); BLOOD/HEMOGLOBIN,URINE 5+ (NEGATIVE); GLUCOSE, URINE 2+ (NEGATIVE); KETONES,URINE NEGATIVE (NEGATIVE); LEUKOCYTE ESTERASE ,URINE 3+ (NEGATIVE); NITRITES,URINE NEGATIVE (NEGATIVE); PROTEIN,URINE 3+ (NEGATIVE); UROBILINOGEN,URINE NORMAL (NORMAL)
[2017-01-16 22:06] LABS: APPEARANCE,URINE CLOUDY (CLEAR); BACTERIA,URINE 2+ /HPF (NEGATIVE); COLOR,URINE RED (YELLOW); RBC,URINE TNTC /HPF (NEGATIVE); SQUAMOUS EPITHELIAL CELL,UR RARE /HPF (NEGATIVE)
[2017-01-16 22:11] VITALS: BMI 23.3
[2017-01-16 22:11] LABS: ALBUMIN 2.9 g/dL (3.4-5.0); CALCIUM 9.6 mg/dL (8.5-10.1); CARBON DIOXIDE 19.8 mmol/L (21-32); COR CA(FOR HYPOALB) 10.5 mg/dL (8.5-10.1); CREATININE 3.7 mg/dL (0.70-1.30); FREE T4 (FREE THYROXINE) 1.22 ng/dL (0.76-1.46); MAGNESIUM 1.8 mg/dL (1.7-2.9); TOTAL PROTEIN 8.7 g/dL (6.4-8.2); TSH (3RD GENERATION) 1.195 uIU/mL (0.358-3.74)
[2017-01-17] MEDS: HumuLIN R SUBCUT PRN ×2 (06:00→17:08)
[2017-01-17 06:14] LABS: BASOPHILS % (AUTO) 0.7 % (0.2-1.0); EOSINOPHILS # (AUTO) 0.2 x10^3/uL (0.0-0.2); EOSINOPHILS % (AUTO) 3.1 % (0.9-2.9); HEMATOCRIT 25.8 % (42.0-54.0); HEMOGLOBIN 8.6 g/dL (13.5-18.0); LYMPHOCYTES # (AUTO) 1.2 X10^3/uL (1.3-2.9); LYMPHOCYTES % (AUTO) 15.5 % (21.0-51.0); MEAN CORPUSCULAR HEMOGLOBIN 26.9 pg (27.0-34.0); MEAN CORPUSCULAR HGB CONC 33.5 g/dL (33.0-35.0); MEAN CORPUSCULAR VOLUME 80.3 fL (80.0-100.0); MEAN PLATELET VOLUME 9.3 fL (7.4-11.0); MONOCYTES # (AUTO) 0.7 x10^3/uL (0.3-0.8); MONOCYTES % (AUTO) 9.3 % (0.0-13.0); NEUTROPHILS # (AUTO) 5.4 x10^3/uL (2.2-4.8); NEUTROPHILS % (AUTO) 71.4 % (42.0-75.0); PLATELET COUNT 154 X10^3/uL (150.0-450.0); RED BLOOD COUNT 3.22 X10^6/uL (4.7-6.0); WHITE BLOOD COUNT 7.6 X10^3/uL (3.6-10.0)
[2017-01-17 06:20] LABS: CALCIUM 8.7 mg/dL (8.5-10.1); CREATININE 3.3 mg/dL (0.70-1.30)
--- NOTE | 2017-01-17 06:22 | RAD ---
HISTORY: Hypoxia Study: Chest two-view Comparison: December 05, 2016 Findings: The trachea is midline. The cardiac silhouette is unremarkable. The lungs are clear without focal infiltrate or effusion. The bony thorax is unremarkable. IMPRESSION: 1. No acute cardiopulmonary disease. Reported By:
[2017-01-17 07:12] LABS: PLATELET MORPHOLOGY COMMENT NORMAL (NORMAL)
[2017-01-17] MEDS ORDERED: NS 1000 ML 1,000 ML IV ONE (07:15)
--- NOTE | 2017-01-17 08:24 | DR.H&P ---
H&P - History & Physical for Day of: H&P Date: 01/16/17 - Chief Complaint Chief Complaint: Abnormal labs - Allergies Allergies/Adverse Reactions: Allergies Allergy/AdvReac Type Severity Reaction Status Date / Time Codeine Allergy Verified 11/30/16 08:29 - History of Present Illness History of Present Illness: The patient is a 66yo male resident of [facility]. Patient had elevated K+5.5, BUN 34, Cr 2.69. Patient was given 1000ml NS at . Rpt labs reveal NA 128, BUN 48 CR 3.66. Patient has recent history of Acute on Chronic Kidney Failure desite not being on diurectics. - Past Medical History Past Medical History: Anxiety, Dementia, Depression, Hypertension - Family History Family Medical History: Cancer - Social History Does patient currently use any type of tobacco product: Yes Type of Tobacco Use: Cigarettes Alcohol Use: None Drug Use: Prescription Drugs - Medications Home Medications: Ciprofloxacin HCl [Cipro] 250 mg PO BID 01/16/17 [History Confirmed 01/16/17] - Review of Systems Constitutional: Weakness, Malaise Eyes: No Symptoms Reported ENT: No Symptoms Reported Respiratory: No Symptoms Reported Cardiovascular: No Symptoms Reported Gastrointestinal: No Symptoms Reported Genitourinary: No Symptoms Reported Musculoskeletal: No Symptoms Reported Skin: No Symptoms Reported Neurological: No Symptoms Reported - Physical Exam Vital Signs: Temperature 99.2 F Pulse Rate [Left Brachial] 76 Respiratory Rate 20 Blood Pressure [Right Arm] 105/52 Blood Pressure [Left Arm] 89/53 Blood Pressure 123/60 O2 Sat by Pulse Oximetry 100 Oriented: Normal Eyes: Normal Ear: Normal Nose: Normal Throat: Normal Respiratory: Clear Throughout Cardiovascular: Normal : Normal Auscultation: Bowel Sounds: Normal Palpation: Normal Tenderness: Normal Skin: Normal Musculoskeletal: Normal Psychiatric: Normal Mood Description: Calm Affect: Quiet - Assessment/Plan (1) Acute renal failure Qualifiers: Acute renal failure type: A Status: Acute Plan: LABS, IVFS (2) Altered mental status Qualifiers: Altered mental status type: A Coma depth: C Coma timing: C Status: Acute Plan: LABS, IVFS (3) Dehydration Status: Acute Plan: LABS, IVFS (4) UTI (urinary tract infection) Qualifiers: Urinary tract infection type: U Hematuria presence: H Indwelling urinary catheter type: I Encounter type: E Status: Acute Plan: LABS, IVFS, ROCEPHIN
[2017-01-17] MEDS ORDERED: HumuLIN R SC PRN (08:50)
[2017-01-17] MEDS ORDERED: [UNRECOGNIZED DRUG - OTHER] PO PRN (08:50)
[2017-01-17] MEDS ORDERED: VITAMIN D (1.25MG) PO SCH (09:00)
[2017-01-17] MEDS ORDERED: CIPROFLOXACIN HCL PO SCH (09:00)
[2017-01-17] MEDS ORDERED: TYLENOL 325 MG TAB PO PRN (09:10)
[2017-01-17] MEDS ORDERED: GLUCOPHAGE ONE ×2 (11:44→21:51)
[2017-01-17] MEDS: GLUCOPHAGE PO SCH ×2 (11:57→22:02)
[2017-01-17] MEDS: NORCO 5/325 MG TAB PO PRN ×2 (11:57→18:23)
[2017-01-17] MEDS: CIPRO TAB 500 MG PO SCH ×2 (11:57→22:02)
[2017-01-17] MEDS: KLONOPIN TAB 0.5 MG PO PRN (11:57)
[2017-01-17] MEDS: AMARYL TAB 4 MG PO SCH ×2 (11:58→22:01)
[2017-01-17] MEDS: CLARITIN PO SCH (11:58)
[2017-01-17] MEDS: ASPIRIN EC 81 MG PO SCH (11:58)
[2017-01-17] MEDS ORDERED: TOPROL XL PO ONE (12:04)
[2017-01-17] MEDS: PriLOSEC PO SCH (12:06)
[2017-01-17] MEDS: ZESTRIL TAB 10 MG PO SCH (12:06)
[2017-01-17] MEDS: TOPROL XL PO SCH (12:06)
[2017-01-17] MEDS: PROSCAR PO SCH (12:06)
--- NOTE | 2017-01-17 13:16 | PCM.PROG ---
Progress Note - Progress Note for Day of Date: 01/17/17 - Subjective Subjective: patient is a 66-year-old white male admitted from [facility] with acute on chronic renal failure with hyponatremia. Patient's sodium improved with IV hydration since admission. Patient continue co mild weakness otherwise no complaints. good appetite, restin quietly - Past Medical Family Social History Past Med/Fam/Surg Hx: No changes since H&P Allergies: Allergies Codeine Allergy (Verified 11/30/16 08:29) - Vital Signs and I&O's Vital Signs: Temperature 98 F Pulse Rate [Left Brachial] 83 Respiratory Rate 20 Blood Pressure [Right Arm] 105/52 Blood Pressure [Left Arm] 150/66 Blood Pressure 123/60 O2 Sat by Pulse Oximetry 98 Intake and Output: Intake & Output 01/15/17 01/16/17 01/17/17 01/18/17 11:59 11:59 11:59 11:59 Intake Total 2367 Output Total 1475 Balance 892 - Physical Exam Oriented: Normal Eyes: Normal Ear: Normal Nose: Normal Throat: Normal Respiratory: Wheezes (mild lower exp wheezes) Cardiovascular: Normal : Normal Auscultation: Bowel Sounds: Normal Tenderness: Normal Skin: Normal, Decreased Turgur Musculoskeletal: Back:Lumbar Psychiatric: Normal Mood Description: Calm Affect: Quiet Speech Pattern: Clear, Appropriate - Laboratory and Diagnostics Result Diagrams: 01/17/17 04:20 01/17/17 04:20 Labs: 01/16/17 21:14 Urine,Clean Catch Urine Culture - Preliminary Laboratory WBC 7.6 X10^3/uL (3.6-10.0) 01/17/17 04:20 RBC 3.22 X10^6/uL (4.7-6.0) L 01/17/17 04:20 Hgb 8.6 g/dL (13.5-18.0) L 01/17/17 04:20 Hct 25.8 % (42.0-54.0) L 01/17/17 04:20 MCV 80.3 fL (80.0-100.0) 01/17/17 04:20 MCH 26.9 pg (27.0-34.0) L 01/17/17 04:20 MCHC 33.5 g/dL (33.0-35.0) 01/17/17 04:20 RDW 18.0 % (11.6-16.5) H 01/17/17 04:20 Plt Count 154 X10^3/uL (150.0-450.0) 01/17/17 04:20 Plt Count Comment Adequate (ADEQUATE) 01/17/17 04:20 MPV 9.3 fL (7.4-11.0) 01/17/17 04:20 Neut % 71.4 % (42.0-75.0) 01/17/17 04:20 Lymph % 15.5 % (21.0-51.0) L 01/17/17 04:20 [place] % 9.3 % (0.0-13.0) 01/17/17 04:20 Eos % 3.1 % (0.9-2.9) H 01/17/17 04:20 Baso % 0.7 % (0.2-1.0) 01/17/17 04:20 Neut # 5.4 x10^3/uL (2.2-4.8) H 01/17/17 04:20 Lymph # 1.2 X10^3/uL (1.3-2.9) L 01/17/17 04:20 [place] # 0.7 x10^3/uL (0.3-0.8) 01/17/17 04:20 Eos # 0.2 x10^3/uL (0.0-0.2) 01/17/17 04:20 Baso # 0.0 X10^3/uL (0.0-0.1) 01/17/17 04:20 Absolute Nucleated RBC 0.1 /100WBC 01/17/17 04:20 Total Counted 100 01/17/17 04:20 Neutrophils % (Manual) 70 % (39-76) 01/17/17 04:20 Lymphocytes % (Manual) 24 % (13-43) 01/17/17 04:20 Monocytes % (Manual) 2 % (4-9) L 01/17/17 04:20 Eosinophils % (Manual) 4 % (0-6) 01/17/17 04:20 Plt Morphology Comment Normal (NORMAL) 01/17/17 04:20 RBC Morphology Normal (NORMAL) 01/17/17 04:20 Sodium 135 mmol/L (136-145) L 01/17/17 04:20 Corrected Sodium 139 mmol/L (136-145) 01/17/17 04:20 Potassium 4.4 mmol/L (3.5-5.1) 01/17/17 04:20 Chloride 102 mmol/L (98-107) 01/17/17 04:20 Carbon Dioxide 18.0 mmol/L (21-32) L 01/17/17 04:20 BUN 44 mg/dL (7-18) H 01/17/17 04:20 Creatinine 3.30 mg/dL (0.70-1.30) H 01/17/17 04:20 Est GFR (MDRD) Af Amer 24 (>60) L 01/17/17 04:20 Est GFR (MDRD) Non-Af 20 (>60) L 01/17/17 04:20 Glucose 257 mg/dL (65-99) H 01/17/17 04:20 Calcium 8.7 mg/dL (8.5-10.1) 01/17/17 04:20 Corrected Calcium 10.5 mg/dL (8.5-10.1) H 01/16/17 21:25 Magnesium 1.8 mg/dL (1.7-2.9) 01/16/17 21:25 Total Bilirubin 0.50 mg/dL (0.2-1.0) 01/16/17 21:25 AST 21 Units/L (15-37) 01/16/17 21:25 ALT 39 Units/L (12-78) 01/16/17 21:25 Alkaline Phosphatase 266 Units/L (46-116) H 01/16/17 21:25 Total Protein 8.7 g/dL (6.4-8.2) H 01/16/17 21:25 Albumin 2.9 g/dL (3.4-5.0) L 01/16/17 21:25 Globulin 5.8 g/dL (2.5-4.5) H 01/16/17 21:25 Albumin/Globulin Ratio 0.5 Ratio (1.1-2.1) L 01/16/17 21:25 Free T4 1.22 ng/dL (0.76-1.46) 01/16/17 21:25 TSH 3rd Generation 1.195 uIU/mL (0.358-3.74) 01/16/17 21:25 Specimen Type Clean catch urine 01/16/17 21:14 Urine Color Red (YELLOW) 01/16/17 21:14 Urine Appearance Cloudy (CLEAR) 01/16/17 21:14 Urine pH 5.0 (5.0 - 8.0) 01/16/17 21:14 Ur Specific [place] 1.010 (1.000-1.030) 01/16/17 21:14 Urine Protein 3+ (NEGATIVE) 01/16/17 21:14 Urine Glucose (UA) 2+ (NEGATIVE) 01/16/17 21:14 Urine Ketones Negative (NEGATIVE) 01/16/17 21:14 Urine Occult Blood 5+ (NEGATIVE) 01/16/17 21:14 Urine Nitrite Negative (NEGATIVE) 01/16/17 21:14 Urine Bilirubin Negative (NEGATIVE) 01/16/17 21:14 Urine Urobilinogen Normal (NORMAL) 01/16/17 21:14 Ur Leukocyte Esterase 3+ (NEGATIVE) 01/16/17 21:14 Urine RBC Tntc /HPF (NEGATIVE) 01/16/17 21:14 Urine WBC Tntc /HPF (NEGATIVE) 01/16/17 21:14 Ur Squamous Epith Cells Rare /HPF (NEGATIVE) 01/16/17 21:14 Urine Bacteria 2+ /HPF (NEGATIVE) 01/16/17 21:14 Ur Culture Indicated? Yes/culture set up 01/16/17 21:14 - Plan (1) ARF (acute renal failure) Status: Acute Qualifiers: Acute renal failure type: A Plan: iv hydration, repeat am cmp (2) Depression Status: Acute Qualifiers: Depression Type: D Major depression recurrence: M Active/Remission status : A Major depression episode severity: M Psychotic features: P Trimester: T (3) UTI (urinary tract infection) Status: Acute Qualifiers: Urinary tract infection type: U Hematuria presence: H Indwelling urinary catheter type: I Encounter type: E Plan: culture pending, continue iv atbx (4) Hyponatremia Status: Acute Plan: hold ssri, iv hydration, repeat am labs
[2017-01-17] MEDS: NS 1000 ML 1,000 ML IV PRN (19:45)
[2017-01-17] MEDS: SNACK - Diabetic Appropriate PO SCH (19:45)
[2017-01-17] MEDS ORDERED: PATIENT'S HOME MEDICATION RESPIRATORY (Melatonin [Melatonin] 3 MG) PO SCH (21:00)
[2017-01-17] MEDS ORDERED: [UNRECOGNIZED DRUG - OTHER] PO SCH (21:00)
[2017-01-17] MEDS ORDERED: CELEXA PO SCH (21:00)
[2017-01-17] MEDS: ROCEPHIN VIAL 1 GM 1 GM in NS 50 ML IV + SPIKE MINIBAG* 50 ML IV SCH (22:00)
[2017-01-17] MEDS: LIPITOR TAB 10 MG PO SCH (22:01)
[2017-01-17] MEDS: FLOMAX PO SCH (22:02)
[2017-01-17] MEDS: REMERON PO SCH (22:02)
[2017-01-17] MEDS: LANTUS SC SCH (22:04)
[2017-01-18] MEDS: KLONOPIN TAB 0.5 MG PO PRN ×2 (06:06→20:50)
[2017-01-18] MEDS: NORCO 5/325 MG TAB PO PRN ×2 (06:06→20:51)
[2017-01-18] MEDS: HumuLIN R SUBCUT PRN ×2 (06:07→12:20)
[2017-01-18 06:47] LABS: ALBUMIN 2.4 g/dL (3.4-5.0); CALCIUM 8.7 mg/dL (8.5-10.1); CARBON DIOXIDE 18.7 mmol/L (21-32); CREATININE 2.64 mg/dL (0.70-1.30); TOTAL PROTEIN 7.6 g/dL (6.4-8.2)
[2017-01-18 06:53] LABS: BASOPHILS # (AUTO) 0.1 X10^3/uL (0.0-0.1); BASOPHILS % (AUTO) 1.2 % (0.2-1.0); EOSINOPHILS # (AUTO) 0.2 x10^3/uL (0.0-0.2); EOSINOPHILS % (AUTO) 4.2 % (0.9-2.9); HEMATOCRIT 27.5 % (42.0-54.0); HEMOGLOBIN 9.2 g/dL (13.5-18.0); LYMPHOCYTES # (AUTO) 1.1 X10^3/uL (1.3-2.9); MEAN CORPUSCULAR HEMOGLOBIN 26.6 pg (27.0-34.0); MEAN CORPUSCULAR HGB CONC 33.4 g/dL (33.0-35.0); MEAN CORPUSCULAR VOLUME 79.9 fL (80.0-100.0); MEAN PLATELET VOLUME 9.1 fL (7.4-11.0); MONOCYTES # (AUTO) 0.4 x10^3/uL (0.3-0.8); MONOCYTES % (AUTO) 7.7 % (0.0-13.0); NEUTROPHILS # (AUTO) 3.8 x10^3/uL (2.2-4.8); NEUTROPHILS % (AUTO) 66.9 % (42.0-75.0); PLATELET COUNT 181 X10^3/uL (150.0-450.0); RED BLOOD COUNT 3.44 X10^6/uL (4.7-6.0); RED CELL DISTRIBUTION WIDTH 18.1 % (11.6-16.5); WHITE BLOOD COUNT 5.7 X10^3/uL (3.6-10.0)
--- NOTE | 2017-01-18 07:48 | RAD ---
HISTORY: Congestion and cough. Dyspnea. PA and lateral views of the chest. Comparison: January 16, 2017. Findings: The trachea is midline. The cardiac silhouette is stable from prior. There are increased perihilar interstitial opacities seen, compatible with chronic bronchitis. The lungs are otherwise clear with out focal infiltrate or effusion. The bony thorax is unremarkable. IMPRESSION: Radiographic findings of chronic bronchitis. No lobar pneumonia or effusion seen. Reported By:
[2017-01-18] MEDS ORDERED: GLUCOPHAGE ONE ×2 (09:07→20:35)
[2017-01-18] MEDS ORDERED: TOPROL XL PO ONE (09:08)
[2017-01-18] MEDS: CLARITIN PO SCH (09:26)
[2017-01-18] MEDS: CIPRO TAB 500 MG PO SCH ×2 (09:26→20:50)
[2017-01-18] MEDS: ASPIRIN EC 81 MG PO SCH (09:26)
[2017-01-18] MEDS: TOPROL XL PO SCH (09:26)
[2017-01-18] MEDS: PROSCAR PO SCH (09:26)
[2017-01-18] MEDS: AMARYL TAB 4 MG PO SCH ×2 (09:27→20:51)
[2017-01-18] MEDS: ZESTRIL TAB 10 MG PO SCH (09:27)
[2017-01-18] MEDS: PriLOSEC PO SCH (09:27)
[2017-01-18] MEDS: GLUCOPHAGE PO SCH ×2 (09:27→20:49)
[2017-01-18] MEDS: ALBUMIN HUMAN 25%- 100ML 100 ML IV SCH (12:20)
[2017-01-18] MEDS: NS 1000 ML 1,000 ML IV PRN (16:25)
--- NOTE | 2017-01-18 17:25 | PCM.PROG ---
Progress Note - Progress Note for Day of Date: 01/18/17 - Subjective Subjective: PATIENT IS ADMITTED FOR RENAL FAILURE AND HYPONATREMIA. HE CONTINUES ON IV FLUIDS OF NS AT 50MLS/HR. HE REPORTS GENERALIZED WEAKNESS. CBC WNL EXCEPT: H/H 9.2/27.5. CMP WNL EXCEPT: BUN/CREAT 34/2.64, GFR 26, GLUOCSE 291, ALK PHOS 241, ALBUMIN 2.4. WE WILL CONTINUE TO HYDRATE WITH IV FLUIDS AND MONITOR LABS IN AM. - Past Medical Family Social History Past Med/Fam/Surg Hx: No changes since H&P Allergies: Allergies Codeine Allergy (Verified 11/30/16 08:29) - Review of Systems ROS: No change since H&P - Vital Signs and I&O's Vital Signs: Temperature 98.6 F Pulse Rate [Left Brachial] 75 Respiratory Rate 20 Blood Pressure [Right Arm] 131/73 Blood Pressure [Left Arm] 134/64 Blood Pressure 123/60 O2 Sat by Pulse Oximetry 96 Intake and Output: Intake & Output 01/16/17 01/17/17 01/18/17 01/19/17 11:59 11:59 11:59 11:59 Intake Total 2367 4585 800 Output Total 1475 3625 2100 Balance 892 960 -1300 - Physical Exam Oriented: Normal Eyes: Normal Ear: Normal Nose: Normal Throat: Normal Respiratory: Wheezes (mild lower exp wheezes) Cardiovascular: Normal : Normal Auscultation: Bowel Sounds: Normal Palpation: Normal Tenderness: Normal Skin: Decreased Turgur Musculoskeletal: Back:Lumbar Psychiatric: Normal Mood Description: Calm Affect: Quiet Speech Pattern: Clear, Appropriate - Laboratory and Diagnostics Result Diagrams: 01/18/17 04:34 01/18/17 04:34 Labs: 01/16/17 21:35 Blood Blood Culture - Preliminary 01/16/17 21:25 Blood Blood Culture - Preliminary 01/16/17 21:14 Urine,Clean Catch Urine Culture - Final Laboratory WBC 5.7 X10^3/uL (3.6-10.0) 01/18/17 04:34 RBC 3.44 X10^6/uL (4.7-6.0) L 01/18/17 04:34 Hgb 9.2 g/dL (13.5-18.0) L 01/18/17 04:34 Hct 27.5 % (42.0-54.0) L 01/18/17 04:34 MCV 79.9 fL (80.0-100.0) L 01/18/17 04:34 MCH 26.6 pg (27.0-34.0) L 01/18/17 04:34 MCHC 33.4 g/dL (33.0-35.0) 01/18/17 04:34 RDW 18.1 % (11.6-16.5) H 01/18/17 04:34 Plt Count 181 X10^3/uL (150.0-450.0) 01/18/17 04:34 Plt Count Comment Adequate (ADEQUATE) 01/17/17 04:20 MPV 9.1 fL (7.4-11.0) 01/18/17 04:34 Neut % 66.9 % (42.0-75.0) 01/18/17 04:34 Lymph % 20.0 % (21.0-51.0) L 01/18/17 04:34 [place] % 7.7 % (0.0-13.0) 01/18/17 04:34 Eos % 4.2 % (0.9-2.9) H 01/18/17 04:34 Baso % 1.2 % (0.2-1.0) H 01/18/17 04:34 Neut # 3.8 x10^3/uL (2.2-4.8) 01/18/17 04:34 Lymph # 1.1 X10^3/uL (1.3-2.9) L 01/18/17 04:34 [place] # 0.4 x10^3/uL (0.3-0.8) 01/18/17 04:34 Eos # 0.2 x10^3/uL (0.0-0.2) 01/18/17 04:34 Baso # 0.1 X10^3/uL (0.0-0.1) 01/18/17 04:34 Absolute Nucleated RBC 0.1 /100WBC 01/18/17 04:34 Total Counted 100 01/17/17 04:20 Neutrophils % (Manual) 70 % (39-76) 01/17/17 04:20 Lymphocytes % (Manual) 24 % (13-43) 01/17/17 04:20 Monocytes % (Manual) 2 % (4-9) L 01/17/17 04:20 Eosinophils % (Manual) 4 % (0-6) 01/17/17 04:20 Plt Morphology Comment Normal (NORMAL) 01/17/17 04:20 RBC Morphology Normal (NORMAL) 01/17/17 04:20 Sodium 138 mmol/L (136-145) 01/18/17 04:34 Corrected Sodium 143 mmol/L (136-145) 01/18/17 04:34 Potassium 4.2 mmol/L (3.5-5.1) 01/18/17 04:34 Chloride 105 mmol/L (98-107) 01/18/17 04:34 Carbon Dioxide 18.7 mmol/L (21-32) L 01/18/17 04:34 BUN 34 mg/dL (7-18) H 01/18/17 04:34 Creatinine 2.64 mg/dL (0.70-1.30) H 01/18/17 04:34 Est GFR (MDRD) Af Amer 31 (>60) L 01/18/17 04:34 Est GFR (MDRD) Non-Af 26 (>60) L 01/18/17 04:34 Glucose 291 mg/dL (65-99) H 01/18/17 04:34 Calcium 8.7 mg/dL (8.5-10.1) 01/18/17 04:34 Corrected Calcium 10.0 mg/dL (8.5-10.1) 01/18/17 04:34 Magnesium 1.8 mg/dL (1.7-2.9) 01/16/17 21:25 Total Bilirubin 0.20 mg/dL (0.2-1.0) 01/18/17 04:34 AST 40 Units/L (15-37) H 01/18/17 04:34 ALT 44 Units/L (12-78) 01/18/17 04:34 Alkaline Phosphatase 241 Units/L (46-116) H 01/18/17 04:34 Total Protein 7.6 g/dL (6.4-8.2) 01/18/17 04:34 Albumin 2.4 g/dL (3.4-5.0) L 01/18/17 04:34 Globulin 5.2 g/dL (2.5-4.5) H 01/18/17 04:34 Albumin/Globulin Ratio 0.5 Ratio (1.1-2.1) L 01/18/17 04:34 Free T4 1.22 ng/dL (0.76-1.46) 01/16/17 21:25 TSH 3rd Generation 1.195 uIU/mL (0.358-3.74) 01/16/17 21:25 Specimen Type Clean catch urine 01/16/17 21:14 Urine Color Red (YELLOW) 01/16/17 21:14 Urine Appearance Cloudy (CLEAR) 01/16/17 21:14 Urine pH 5.0 (5.0 - 8.0) 01/16/17 21:14 Ur Specific [place] 1.010 (1.000-1.030) 01/16/17 21:14 Urine Protein 3+ (NEGATIVE) 01/16/17 21:14 Urine Glucose (UA) 2+ (NEGATIVE) 01/16/17 21:14 Urine Ketones Negative (NEGATIVE) 01/16/17 21:14 Urine Occult Blood 5+ (NEGATIVE) 01/16/17 21:14 Urine Nitrite Negative (NEGATIVE) 01/16/17 21:14 Urine Bilirubin Negative (NEGATIVE) 01/16/17 21:14 Urine Urobilinogen Normal (NORMAL) 01/16/17 21:14 Ur Leukocyte Esterase 3+ (NEGATIVE) 01/16/17 21:14 Urine RBC Tntc /HPF (NEGATIVE) 01/16/17 21:14 Urine WBC Tntc /HPF (NEGATIVE) 01/16/17 21:14 Ur Squamous Epith Cells Rare /HPF (NEGATIVE) 01/16/17 21:14 Urine Bacteria 2+ /HPF (NEGATIVE) 01/16/17 21:14 Ur Culture Indicated? Yes/culture set up 01/16/17 21:14 - Plan (1) Hyponatremia Status: Acute Plan: hold ssri, iv hydration, repeat am labs (2) ARF (acute renal failure) Status: Acute Qualifiers: Acute renal failure type: A Plan: iv hydration, repeat am cmp (3) Fever Status: Acute Qualifiers: Fever type: F Encounter type: E (4) UTI (urinary tract infection) Status: Acute Qualifiers: Urinary tract infection type: U Hematuria presence: H Indwelling urinary catheter type: I Encounter type: E Plan: culture pending, continue iv atbx (5) Depression Status: Acute Qualifiers: Depression Type: D Major depression recurrence: M Active/Remission status : A Major depression episode severity: M Psychotic features: P Trimester: T
[2017-01-18] MEDS: SNACK - Diabetic Appropriate PO SCH (20:45)
[2017-01-18] MEDS: ROCEPHIN VIAL 1 GM 1 GM in NS 50 ML IV + SPIKE MINIBAG* 50 ML IV SCH (20:46)
[2017-01-18] MEDS: LIPITOR TAB 10 MG PO SCH (20:49)
[2017-01-18] MEDS: REMERON PO SCH (20:52)
[2017-01-18] MEDS: FLOMAX PO SCH (20:52)
[2017-01-18] MEDS: LANTUS SC SCH (20:53)
[2017-01-19 06:50] LABS: BASOPHILS # (AUTO) 0.1 X10^3/uL (0.0-0.1); BASOPHILS % (AUTO) 1.1 % (0.2-1.0); EOSINOPHILS # (AUTO) 0.3 x10^3/uL (0.0-0.2); EOSINOPHILS % (AUTO) 4.8 % (0.9-2.9); HEMATOCRIT 26.9 % (42.0-54.0); LYMPHOCYTES # (AUTO) 1.4 X10^3/uL (1.3-2.9); LYMPHOCYTES % (AUTO) 24.9 % (21.0-51.0); MEAN CORPUSCULAR HEMOGLOBIN 26.6 pg (27.0-34.0); MEAN CORPUSCULAR HGB CONC 33.3 g/dL (33.0-35.0); MEAN PLATELET VOLUME 8.7 fL (7.4-11.0); MONOCYTES # (AUTO) 0.5 x10^3/uL (0.3-0.8); NEUTROPHILS # (AUTO) 3.3 x10^3/uL (2.2-4.8); NEUTROPHILS % (AUTO) 60.2 % (42.0-75.0); PLATELET COUNT 193 X10^3/uL (150.0-450.0); RED BLOOD COUNT 3.37 X10^6/uL (4.7-6.0); RED CELL DISTRIBUTION WIDTH 17.9 % (11.6-16.5); WHITE BLOOD COUNT 5.6 X10^3/uL (3.6-10.0)
[2017-01-19 07:19] LABS: ALBUMIN 2.7 g/dL (3.4-5.0); CALCIUM 9.1 mg/dL (8.5-10.1); CARBON DIOXIDE 17.8 mmol/L (21-32); COR CA(FOR HYPOALB) 10.1 mg/dL (8.5-10.1); CREATININE 2.3 mg/dL (0.70-1.30); TOTAL PROTEIN 7.6 g/dL (6.4-8.2)
[2017-01-19] MEDS ORDERED: GLUCOPHAGE ONE ×2 (08:41→20:29)
[2017-01-19] MEDS ORDERED: TOPROL XL PO ONE (08:42)
[2017-01-19] MEDS: PriLOSEC PO SCH (09:15)
[2017-01-19] MEDS: ALBUMIN HUMAN 25%- 100ML 100 ML IV SCH (09:15)
[2017-01-19] MEDS: GLUCOPHAGE PO SCH ×2 (09:16→20:40)
[2017-01-19] MEDS: AMARYL TAB 4 MG PO SCH ×2 (09:17→20:41)
[2017-01-19] MEDS: ZESTRIL TAB 10 MG PO SCH (09:17)
[2017-01-19] MEDS: CIPRO TAB 500 MG PO SCH ×2 (09:17→20:41)
[2017-01-19] MEDS: TOPROL XL PO SCH (09:17)
[2017-01-19] MEDS: PROSCAR PO SCH (09:17)
[2017-01-19] MEDS: ASPIRIN EC 81 MG PO SCH (09:17)
[2017-01-19] MEDS: CLARITIN PO SCH (09:26)
[2017-01-19] MEDS: NS 1000 ML 1,000 ML IV PRN (13:00)
[2017-01-19] MEDS: HumuLIN R SUBCUT PRN ×2 (13:00→18:21)
--- NOTE | 2017-01-19 18:21 | PCM.PROG ---
Progress Note - Progress Note for Day of Date: 01/19/17 - Subjective Subjective: PATIENT IS ADMITTED FOR RENAL FAILURE AND HYPONATREMIA. HE CONTINUES ON IV FLUIDS OF NS AT 50MLS/HR. HE CONTINUES WITH GENERALIZED WEAKNESS. CBC WNL EXCEPT: H/H 9.0/26.9. CMP WNL EXCEPT: BUN/CREAT 32/2.30, GFR 30, GLUOCSE 183, ALK PHOS 247, ALBUMIN 2.7. WE WILL CONTINUE TO HYDRATE WITH IV FLUIDS AND MONITOR LABS IN AM. - Past Medical Family Social History Past Med/Fam/Surg Hx: No changes since H&P Allergies: Allergies Codeine Allergy (Verified 11/30/16 08:29) - Review of Systems ROS: No change since H&P - Vital Signs and I&O's Vital Signs: Temperature 98.3 F Pulse Rate [Left Brachial] 76 Respiratory Rate 20 Blood Pressure [Right Arm] 122/61 Blood Pressure [Left Arm] 147/70 Blood Pressure 123/60 O2 Sat by Pulse Oximetry 96 Intake and Output: Intake & Output 01/17/17 01/18/17 01/19/17 01/20/17 11:59 11:59 11:59 11:59 Intake Total 2367 4805 1556 960 Output Total 1475 8755 3925 1550 Balance 892 965 -9876 -386 - Physical Exam Oriented: Normal Eyes: Normal Ear: Normal Nose: Normal Throat: Normal Respiratory: Wheezes (mild lower exp wheezes) Cardiovascular: Normal : Normal Auscultation: Bowel Sounds: Normal Palpation: Normal Tenderness: Normal Skin: Decreased Turgur Musculoskeletal: Back:Lumbar Psychiatric: Normal Mood Description: Calm Affect: Quiet Speech Pattern: Clear, Appropriate - Laboratory and Diagnostics Result Diagrams: 01/19/17 04:45 01/19/17 04:45 Labs: 01/16/17 21:35 Blood Blood Culture - Preliminary 01/16/17 21:25 Blood Blood Culture - Preliminary 01/16/17 21:14 Urine,Clean Catch Urine Culture - Final Laboratory WBC 5.6 X10^3/uL (3.6-10.0) 01/19/17 04:45 RBC 3.37 X10^6/uL (4.7-6.0) L 01/19/17 04:45 Hgb 9.0 g/dL (13.5-18.0) L 01/19/17 04:45 Hct 26.9 % (42.0-54.0) L 01/19/17 04:45 MCV 80.0 fL (80.0-100.0) 01/19/17 04:45 MCH 26.6 pg (27.0-34.0) L 01/19/17 04:45 MCHC 33.3 g/dL (33.0-35.0) 01/19/17 04:45 RDW 17.9 % (11.6-16.5) H 01/19/17 04:45 Plt Count 193 X10^3/uL (150.0-450.0) 01/19/17 04:45 Plt Count Comment Adequate (ADEQUATE) 01/17/17 04:20 MPV 8.7 fL (7.4-11.0) 01/19/17 04:45 Neut % 60.2 % (42.0-75.0) 01/19/17 04:45 Lymph % 24.9 % (21.0-51.0) 01/19/17 04:45 [place] % 9.0 % (0.0-13.0) 01/19/17 04:45 Eos % 4.8 % (0.9-2.9) H 01/19/17 04:45 Baso % 1.1 % (0.2-1.0) H 01/19/17 04:45 Neut # 3.3 x10^3/uL (2.2-4.8) 01/19/17 04:45 Lymph # 1.4 X10^3/uL (1.3-2.9) 01/19/17 04:45 [place] # 0.5 x10^3/uL (0.3-0.8) 01/19/17 04:45 Eos # 0.3 x10^3/uL (0.0-0.2) H 01/19/17 04:45 Baso # 0.1 X10^3/uL (0.0-0.1) 01/19/17 04:45 Absolute Nucleated RBC 0.1 /100WBC 01/19/17 04:45 Total Counted 100 01/17/17 04:20 Neutrophils % (Manual) 70 % (39-76) 01/17/17 04:20 Lymphocytes % (Manual) 24 % (13-43) 01/17/17 04:20 Monocytes % (Manual) 2 % (4-9) L 01/17/17 04:20 Eosinophils % (Manual) 4 % (0-6) 01/17/17 04:20 Plt Morphology Comment Normal (NORMAL) 01/17/17 04:20 RBC Morphology Normal (NORMAL) 01/17/17 04:20 Sodium 138 mmol/L (136-145) 01/19/17 04:45 Corrected Sodium 140 mmol/L (136-145) 01/19/17 04:45 Potassium 4.0 mmol/L (3.5-5.1) 01/19/17 04:45 Chloride 107 mmol/L (98-107) 01/19/17 04:45 Carbon Dioxide 17.8 mmol/L (21-32) L 01/19/17 04:45 BUN 32 mg/dL (7-18) H 01/19/17 04:45 Creatinine 2.30 mg/dL (0.70-1.30) H 01/19/17 04:45 Est GFR (MDRD) Af Amer 37 (>60) L 01/19/17 04:45 Est GFR (MDRD) Non-Af 30 (>60) L 01/19/17 04:45 Glucose 183 mg/dL (65-99) H 01/19/17 04:45 Calcium 9.1 mg/dL (8.5-10.1) 01/19/17 04:45 Corrected Calcium 10.1 mg/dL (8.5-10.1) 01/19/17 04:45 Magnesium 1.8 mg/dL (1.7-2.9) 01/16/17 21:25 Total Bilirubin 0.20 mg/dL (0.2-1.0) 01/19/17 04:45 AST 38 Units/L (15-37) H 01/19/17 04:45 ALT 52 Units/L (12-78) 01/19/17 04:45 Alkaline Phosphatase 247 Units/L (46-116) H 01/19/17 04:45 Total Protein 7.6 g/dL (6.4-8.2) 01/19/17 04:45 Albumin 2.7 g/dL (3.4-5.0) L 01/19/17 04:45 Globulin 4.9 g/dL (2.5-4.5) H 01/19/17 04:45 Albumin/Globulin Ratio 0.6 Ratio (1.1-2.1) L 01/19/17 04:45 Free T4 1.22 ng/dL (0.76-1.46) 01/16/17 21:25 TSH 3rd Generation 1.195 uIU/mL (0.358-3.74) 01/16/17 21:25 Specimen Type Clean catch urine 01/16/17 21:14 Urine Color Red (YELLOW) 01/16/17 21:14 Urine Appearance Cloudy (CLEAR) 01/16/17 21:14 Urine pH 5.0 (5.0 - 8.0) 01/16/17 21:14 Ur Specific [place] 1.010 (1.000-1.030) 01/16/17 21:14 Urine Protein 3+ (NEGATIVE) 01/16/17 21:14 Urine Glucose (UA) 2+ (NEGATIVE) 01/16/17 21:14 Urine Ketones Negative (NEGATIVE) 01/16/17 21:14 Urine Occult Blood 5+ (NEGATIVE) 01/16/17 21:14 Urine Nitrite Negative (NEGATIVE) 01/16/17 21:14 Urine Bilirubin Negative (NEGATIVE) 01/16/17 21:14 Urine Urobilinogen Normal (NORMAL) 01/16/17 21:14 Ur Leukocyte Esterase 3+ (NEGATIVE) 01/16/17 21:14 Urine RBC Tntc /HPF (NEGATIVE) 01/16/17 21:14 Urine WBC Tntc /HPF (NEGATIVE) 01/16/17 21:14 Ur Squamous Epith Cells Rare /HPF (NEGATIVE) 01/16/17 21:14 Urine Bacteria 2+ /HPF (NEGATIVE) 01/16/17 21:14 Ur Culture Indicated? Yes/culture set up 01/16/17 21:14 - Plan (1) Hyponatremia Status: Acute Plan: hold ssri, iv hydration, repeat am labs (2) ARF (acute renal failure) Status: Acute Qualifiers: Acute renal failure type: A Plan: iv hydration, repeat am cmp (3) Fever Status: Acute Qualifiers: Fever type: F Encounter type: E (4) UTI (urinary tract infection) Status: Acute Qualifiers: Urinary tract infection type: U Hematuria presence: H Indwelling urinary catheter type: I Encounter type: E Plan: culture pending, continue iv atbx (5) Depression Status: Acute Qualifiers: Depression Type: D Major depression recurrence: M Active/Remission status : A Major depression episode severity: M Psychotic features: P Trimester: T
[2017-01-19] MEDS: ROCEPHIN VIAL 1 GM 1 GM in NS 50 ML IV + SPIKE MINIBAG* 50 ML IV SCH (20:38)
[2017-01-19] MEDS: LIPITOR TAB 10 MG PO SCH (20:40)
[2017-01-19] MEDS: REMERON PO SCH (20:41)
[2017-01-19] MEDS: FLOMAX PO SCH (20:42)
[2017-01-19] MEDS: KLONOPIN TAB 0.5 MG PO PRN (20:42)
[2017-01-19] MEDS: NORCO 5/325 MG TAB PO PRN (20:42)
[2017-01-19] MEDS: SNACK - Diabetic Appropriate PO SCH (20:43)
[2017-01-19] MEDS: LANTUS SC SCH (20:43)
[2017-01-20 06:03] LABS: ALBUMIN 3.2 g/dL (3.4-5.0); CALCIUM 9.3 mg/dL (8.5-10.1); CARBON DIOXIDE 21.9 mmol/L (21-32); COR CA(FOR HYPOALB) 9.9 mg/dL (8.5-10.1); CREATININE 2.22 mg/dL (0.70-1.30); TOTAL PROTEIN 8.3 g/dL (6.4-8.2)
[2017-01-20] MEDS: HumuLIN R SUBCUT PRN ×2 (06:08→13:39)
[2017-01-20 06:15] LABS: BASOPHILS # (AUTO) 0.1 X10^3/uL (0.0-0.1); BASOPHILS % (AUTO) 1.1 % (0.2-1.0); EOSINOPHILS # (AUTO) 0.3 x10^3/uL (0.0-0.2); EOSINOPHILS % (AUTO) 5.3 % (0.9-2.9); HEMATOCRIT 29.4 % (42.0-54.0); HEMOGLOBIN 9.9 g/dL (13.5-18.0); LYMPHOCYTES # (AUTO) 1.3 X10^3/uL (1.3-2.9); LYMPHOCYTES % (AUTO) 27.1 % (21.0-51.0); MEAN CORPUSCULAR HEMOGLOBIN 26.7 pg (27.0-34.0); MEAN CORPUSCULAR HGB CONC 33.6 g/dL (33.0-35.0); MEAN CORPUSCULAR VOLUME 79.5 fL (80.0-100.0); MEAN PLATELET VOLUME 8.3 fL (7.4-11.0); MONOCYTES # (AUTO) 0.4 x10^3/uL (0.3-0.8); MONOCYTES % (AUTO) 8.8 % (0.0-13.0); NEUTROPHILS # (AUTO) 2.8 x10^3/uL (2.2-4.8); NEUTROPHILS % (AUTO) 57.7 % (42.0-75.0); PLATELET COUNT 232 X10^3/uL (150.0-450.0); RED CELL DISTRIBUTION WIDTH 17.4 % (11.6-16.5); WHITE BLOOD COUNT 4.9 X10^3/uL (3.6-10.0)
[2017-01-20] MEDS ORDERED: TOPROL XL PO ONE (08:45)
[2017-01-20] MEDS ORDERED: GLUCOPHAGE ONE ×2 (08:45→21:56)
[2017-01-20] MEDS: ALBUMIN HUMAN 25%- 100ML 100 ML IV SCH (09:07)
[2017-01-20] MEDS: TOPROL XL PO SCH (09:09)
[2017-01-20] MEDS: AMARYL TAB 4 MG PO SCH ×2 (09:09→22:14)
[2017-01-20] MEDS: PriLOSEC PO SCH (09:09)
[2017-01-20] MEDS: CIPRO TAB 500 MG PO SCH ×2 (09:09→22:12)
[2017-01-20] MEDS: ASPIRIN EC 81 MG PO SCH (09:09)
[2017-01-20] MEDS: CLARITIN PO SCH (09:09)
[2017-01-20] MEDS: PROSCAR PO SCH (09:10)
[2017-01-20] MEDS: GLUCOPHAGE PO SCH ×2 (09:10→22:13)
[2017-01-20] MEDS: ZESTRIL TAB 10 MG PO SCH (09:10)
[2017-01-20] MEDS: NS 1000 ML 1,000 ML IV PRN ×2 (09:16→22:08)
--- NOTE | 2017-01-20 13:22 | PCM.PROG ---
Progress Note - Progress Note for Day of Date: 01/20/17 - Subjective Subjective: PATIENT IS ADMITTED FOR RENAL FAILURE AND HYPONATREMIA. HE CONTINUES ON IV FLUIDS OF NS AT 50MLS/HR. WE WILL CONTINUE TO HYDRATE WITH IV FLUIDS AND MONITOR LABS IN AM. - Past Medical Family Social History Past Med/Fam/Surg Hx: No changes since H&P Allergies: Allergies Codeine Allergy (Verified 11/30/16 08:29) - Review of Systems ROS: No change since H&P - Vital Signs and I&O's Vital Signs: Temperature 98.1 F Pulse Rate [Right Brachial] 56 Pulse Rate [Left Brachial] 75 Respiratory Rate 20 Blood Pressure [Right Arm] 157/72 Blood Pressure [Left Arm] 175/72 Blood Pressure 123/60 O2 Sat by Pulse Oximetry 100 Intake and Output: Intake & Output 01/18/17 01/19/17 01/20/17 01/21/17 11:59 11:59 11:59 11:59 Intake Total 4585 1556 4203 Output Total 3625 3925 2350 Balance 960 -2369 1853 - Physical Exam Oriented: Normal Eyes: Normal Ear: Normal Nose: Normal Throat: Normal Respiratory: Wheezes (mild lower exp wheezes) Cardiovascular: Normal : Normal Auscultation: Bowel Sounds: Normal Tenderness: Normal Skin: Decreased Turgur Musculoskeletal: Back:Lumbar Psychiatric: Normal Mood Description: Calm Affect: Quiet Speech Pattern: Clear, Appropriate - Laboratory and Diagnostics Result Diagrams: 01/20/17 05:15 01/20/17 05:15 Labs: 01/16/17 21:35 Blood Blood Culture - Preliminary 01/16/17 21:25 Blood Blood Culture - Preliminary 01/16/17 21:14 Urine,Clean Catch Urine Culture - Final Laboratory WBC 4.9 X10^3/uL (3.6-10.0) 01/20/17 05:15 RBC 3.70 X10^6/uL (4.7-6.0) L 01/20/17 05:15 Hgb 9.9 g/dL (13.5-18.0) L 01/20/17 05:15 Hct 29.4 % (42.0-54.0) L 01/20/17 05:15 MCV 79.5 fL (80.0-100.0) L 01/20/17 05:15 MCH 26.7 pg (27.0-34.0) L 01/20/17 05:15 MCHC 33.6 g/dL (33.0-35.0) 01/20/17 05:15 RDW 17.4 % (11.6-16.5) H 01/20/17 05:15 Plt Count 232 X10^3/uL (150.0-450.0) 01/20/17 05:15 Plt Count Comment Adequate (ADEQUATE) 01/17/17 04:20 MPV 8.3 fL (7.4-11.0) 01/20/17 05:15 Neut % 57.7 % (42.0-75.0) 01/20/17 05:15 Lymph % 27.1 % (21.0-51.0) 01/20/17 05:15 [place] % 8.8 % (0.0-13.0) 01/20/17 05:15 Eos % 5.3 % (0.9-2.9) H 01/20/17 05:15 Baso % 1.1 % (0.2-1.0) H 01/20/17 05:15 Neut # 2.8 x10^3/uL (2.2-4.8) 01/20/17 05:15 Lymph # 1.3 X10^3/uL (1.3-2.9) 01/20/17 05:15 [place] # 0.4 x10^3/uL (0.3-0.8) 01/20/17 05:15 Eos # 0.3 x10^3/uL (0.0-0.2) H 01/20/17 05:15 Baso # 0.1 X10^3/uL (0.0-0.1) 01/20/17 05:15 Absolute Nucleated RBC 0.0 /100WBC 01/20/17 05:15 Total Counted 100 01/17/17 04:20 Neutrophils % (Manual) 70 % (39-76) 01/17/17 04:20 Lymphocytes % (Manual) 24 % (13-43) 01/17/17 04:20 Monocytes % (Manual) 2 % (4-9) L 01/17/17 04:20 Eosinophils % (Manual) 4 % (0-6) 01/17/17 04:20 Plt Morphology Comment Normal (NORMAL) 01/17/17 04:20 RBC Morphology Normal (NORMAL) 01/17/17 04:20 Sodium 138 mmol/L (136-145) 01/20/17 05:15 Corrected Sodium 141 mmol/L (136-145) 01/20/17 05:15 Potassium 3.9 mmol/L (3.5-5.1) 01/20/17 05:15 Chloride 103 mmol/L (98-107) 01/20/17 05:15 Carbon Dioxide 21.9 mmol/L (21-32) 01/20/17 05:15 BUN 30 mg/dL (7-18) H 01/20/17 05:15 Creatinine 2.22 mg/dL (0.70-1.30) H 01/20/17 05:15 Est GFR (MDRD) Af Amer 38 (>60) L 01/20/17 05:15 Est GFR (MDRD) Non-Af 32 (>60) L 01/20/17 05:15 Glucose 206 mg/dL (65-99) H 01/20/17 05:15 Calcium 9.3 mg/dL (8.5-10.1) 01/20/17 05:15 Corrected Calcium 9.9 mg/dL (8.5-10.1) 01/20/17 05:15 Magnesium 1.8 mg/dL (1.7-2.9) 01/16/17 21:25 Total Bilirubin 0.30 mg/dL (0.2-1.0) 01/20/17 05:15 AST 36 Units/L (15-37) 01/20/17 05:15 ALT 48 Units/L (12-78) 01/20/17 05:15 Alkaline Phosphatase 274 Units/L (46-116) H 01/20/17 05:15 Total Protein 8.3 g/dL (6.4-8.2) H 01/20/17 05:15 Albumin 3.2 g/dL (3.4-5.0) L 01/20/17 05:15 Globulin 5.1 g/dL (2.5-4.5) H 01/20/17 05:15 Albumin/Globulin Ratio 0.6 Ratio (1.1-2.1) L 01/20/17 05:15 Free T4 1.22 ng/dL (0.76-1.46) 01/16/17 21:25 TSH 3rd Generation 1.195 uIU/mL (0.358-3.74) 01/16/17 21:25 Specimen Type Clean catch urine 01/16/17 21:14 Urine Color Red (YELLOW) 01/16/17 21:14 Urine Appearance Cloudy (CLEAR) 01/16/17 21:14 Urine pH 5.0 (5.0 - 8.0) 01/16/17 21:14 Ur Specific [place] 1.010 (1.000-1.030) 01/16/17 21:14 Urine Protein 3+ (NEGATIVE) 01/16/17 21:14 Urine Glucose (UA) 2+ (NEGATIVE) 01/16/17 21:14 Urine Ketones Negative (NEGATIVE) 01/16/17 21:14 Urine Occult Blood 5+ (NEGATIVE) 01/16/17 21:14 Urine Nitrite Negative (NEGATIVE) 01/16/17 21:14 Urine Bilirubin Negative (NEGATIVE) 01/16/17 21:14 Urine Urobilinogen Normal (NORMAL) 01/16/17 21:14 Ur Leukocyte Esterase 3+ (NEGATIVE) 01/16/17 21:14 Urine RBC Tntc /HPF (NEGATIVE) 01/16/17 21:14 Urine WBC Tntc /HPF (NEGATIVE) 01/16/17 21:14 Ur Squamous Epith Cells Rare /HPF (NEGATIVE) 01/16/17 21:14 Urine Bacteria 2+ /HPF (NEGATIVE) 01/16/17 21:14 Ur Culture Indicated? Yes/culture set up 01/16/17 21:14 - Plan (1) ARF (acute renal failure) Status: Acute Qualifiers: Acute renal failure type: A Plan: iv hydration, repeat am cmp (2) Depression Status: Acute Qualifiers: Depression Type: D Major depression recurrence: M Active/Remission status : A Major depression episode severity: M Psychotic features: P Trimester: T (3) UTI (urinary tract infection) Status: Resolved Qualifiers: Urinary tract infection type: U Hematuria presence: H Indwelling urinary catheter type: I Encounter type: E Plan: culture pending, continue iv atbx (4) Hyponatremia Status: Acute Plan: hold ssri, iv hydration, repeat am labs
[2017-01-20] MEDS: NORVASC TAB 5 MG PO SCH (14:17)
[2017-01-20] MEDS: KLONOPIN TAB 0.5 MG PO PRN (16:40)
--- NOTE | 2017-01-20 19:44 | US ---
History: Acute renal failure Study: Ultrasound of the urinary bladder after voiding Findings: The urinary bladder measures about 5 centimeters diameter without focal mass or calculus d emonstrated. The bladder volume was not calculated. Impression: Small postvoid residual in urinary bladder Reported By:
[2017-01-20] MEDS: SNACK - Diabetic Appropriate PO SCH (22:08)
[2017-01-20] MEDS: ROCEPHIN VIAL 1 GM 1 GM in NS 50 ML IV + SPIKE MINIBAG* 50 ML IV SCH (22:09)
[2017-01-20] MEDS: REMERON PO SCH (22:11)
[2017-01-20] MEDS: LIPITOR TAB 10 MG PO SCH (22:12)
[2017-01-20] MEDS: FLOMAX PO SCH (22:13)
[2017-01-20] MEDS: NORCO 5/325 MG TAB PO PRN (22:13)
[2017-01-20] MEDS: LANTUS SC SCH (22:15)
[2017-01-21] MEDS: KLONOPIN TAB 0.5 MG PO PRN ×3 (04:58→21:58)
[2017-01-21] MEDS: NORCO 5/325 MG TAB PO PRN ×2 (04:58→21:56)
[2017-01-21 05:46] LABS: ALANINE AMINOTRANSFERASE 48 Units/L (12-78); ALBUMIN 3.4 g/dL (3.4-5.0); ALKALINE PHOSPHATASE 273 Units/L (46-116); ASPARTATE AMINO TRANSFERASE 34 Units/L (15-37); BLOOD UREA NITROGEN 29 mg/dL (7-18); CALCIUM 9.7 mg/dL (8.5-10.1); CARBON DIOXIDE 20.2 mmol/L (21-32); CHLORIDE 103 mmol/L (98-107); COR NA(FOR HYPERGLY) 139 mmol/L (136-145); CREATININE 2.15 mg/dL (0.70-1.30); GLUCOSE 138 mg/dL (65-99); SODIUM 138 mmol/L (136-145); TOTAL PROTEIN 8.3 g/dL (6.4-8.2); eGFR BLACK RACES 40 (>60); eGFR NON BLACK RACES 33 (>60)
[2017-01-21 06:17] LABS: BASOPHILS # (AUTO) 0.1 X10^3/uL (0.0-0.1); BASOPHILS % (AUTO) 0.7 % (0.2-1.0); EOSINOPHILS # (AUTO) 0.4 x10^3/uL (0.0-0.2); EOSINOPHILS % (AUTO) 5.1 % (0.9-2.9); HEMATOCRIT 25.4 % (42.0-54.0); HEMOGLOBIN 8.5 g/dL (13.5-18.0); LYMPHOCYTES % (AUTO) 28.5 % (21.0-51.0); MEAN CORPUSCULAR HEMOGLOBIN 26.7 pg (27.0-34.0); MEAN CORPUSCULAR HGB CONC 33.6 g/dL (33.0-35.0); MEAN CORPUSCULAR VOLUME 79.5 fL (80.0-100.0); MEAN PLATELET VOLUME 8.5 fL (7.4-11.0); MONOCYTES # (AUTO) 0.5 x10^3/uL (0.3-0.8); MONOCYTES % (AUTO) 6.9 % (0.0-13.0); NEUTROPHILS # (AUTO) 4.2 x10^3/uL (2.2-4.8); NEUTROPHILS % (AUTO) 58.8 % (42.0-75.0); PLATELET COUNT 216 X10^3/uL (150.0-450.0); RED BLOOD COUNT 3.19 X10^6/uL (4.7-6.0); RED CELL DISTRIBUTION WIDTH 17.2 % (11.6-16.5)
[2017-01-21 06:49] LABS: WHITE BLOOD COUNT 7.6 X10^3/uL (3.6-10.0)
[2017-01-21 06:50] LABS: PLATELET MORPHOLOGY COMMENT NORMAL (NORMAL)
[2017-01-21] MEDS ORDERED: GLUCOPHAGE ONE ×2 (08:43→21:02)
[2017-01-21] MEDS ORDERED: TOPROL XL PO ONE (08:44)
[2017-01-21] MEDS: ALBUMIN HUMAN 25%- 100ML 100 ML IV SCH (10:17)
[2017-01-21] MEDS: CLARITIN PO SCH (10:18)
[2017-01-21] MEDS: CIPRO TAB 500 MG PO SCH ×2 (10:18→21:56)
[2017-01-21] MEDS: PriLOSEC PO SCH (10:18)
[2017-01-21] MEDS: NORVASC TAB 5 MG PO SCH (10:18)
[2017-01-21] MEDS: ASPIRIN EC 81 MG PO SCH (10:19)
[2017-01-21] MEDS: AMARYL TAB 4 MG PO SCH ×2 (10:19→21:56)
[2017-01-21] MEDS: GLUCOPHAGE PO SCH ×2 (10:19→21:57)
[2017-01-21] MEDS: TOPROL XL PO SCH (10:19)
[2017-01-21] MEDS: PROSCAR PO SCH (10:19)
--- NOTE | 2017-01-21 12:26 | PCM.PROG ---
Progress Note - Progress Note for Day of Date: 01/21/17 - Subjective Subjective: PATIENT IS ADMITTED FOR RENAL FAILURE AND HYPONATREMIA. HE CONTINUES ON IV FLUIDS OF NS AT 50MLS/HR. CMP this morning reveals sodium within normal limits potassium within normal limits BUN and creatinine improving to 29/2.15 WE WILL CONTINUE TO HYDRATE WITH IV FLUIDS AND MONITOR LABS IN AM. CT CHEST DUE TO CHRONIC TOBACCO ABUSE, GAN, HYPONATREMIA - Past Medical Family Social History Past Med/Fam/Surg Hx: No changes since H&P Allergies: Allergies Codeine Allergy (Verified 11/30/16 08:29) - Review of Systems ROS: No change since H&P - Vital Signs and I&O's Vital Signs: Temperature 98.4 F Pulse Rate [Right Brachial] 60 Pulse Rate [Left Brachial] 75 Respiratory Rate 20 Blood Pressure [Right Arm] 158/67 Blood Pressure [Left Arm] 175/72 Blood Pressure 123/60 O2 Sat by Pulse Oximetry 99 Intake and Output: Intake & Output 01/19/17 01/20/17 01/21/17 01/22/17 11:59 11:59 11:59 11:59 Intake Total 1556 4203 3165 Output Total 3925 2350 3395 Balance -2369 1853 -230 - Physical Exam Oriented: Normal Eyes: Normal Ear: Normal Nose: Normal Throat: Normal Respiratory: Wheezes (mild lower exp wheezes) Cardiovascular: Normal : Normal Auscultation: Bowel Sounds: Normal Tenderness: Normal Skin: Decreased Turgur Musculoskeletal: Back:Lumbar Psychiatric: Normal Mood Description: Calm Affect: Quiet Speech Pattern: Clear, Appropriate - Laboratory and Diagnostics Result Diagrams: 01/21/17 04:20 01/21/17 04:20 Labs: 01/16/17 21:35 Blood Blood Culture - Final 01/16/17 21:25 Blood Blood Culture - Final 01/16/17 21:14 Urine,Clean Catch Urine Culture - Final Laboratory WBC 7.6 X10^3/uL (3.6-10.0) 01/21/17 04:20 RBC 3.19 X10^6/uL (4.7-6.0) L 01/21/17 04:20 Hgb 8.5 g/dL (13.5-18.0) L 01/21/17 04:20 Hct 25.4 % (42.0-54.0) L 01/21/17 04:20 MCV 79.5 fL (80.0-100.0) L 01/21/17 04:20 MCH 26.7 pg (27.0-34.0) L 01/21/17 04:20 MCHC 33.6 g/dL (33.0-35.0) 01/21/17 04:20 RDW 17.2 % (11.6-16.5) H 01/21/17 04:20 Plt Count 216 X10^3/uL (150.0-450.0) 01/21/17 04:20 Plt Count Comment Adequate (ADEQUATE) 01/21/17 04:20 MPV 8.5 fL (7.4-11.0) 01/21/17 04:20 Neut % 58.8 % (42.0-75.0) 01/21/17 04:20 Lymph % 28.5 % (21.0-51.0) 01/21/17 04:20 [place] % 6.9 % (0.0-13.0) 01/21/17 04:20 Eos % 5.1 % (0.9-2.9) H 01/21/17 04:20 Baso % 0.7 % (0.2-1.0) 01/21/17 04:20 Neut # 4.2 x10^3/uL (2.2-4.8) 01/21/17 04:20 Lymph # 2.0 X10^3/uL (1.3-2.9) 01/21/17 04:20 [place]all # 0.5 x10^3/uL (0.3-0.8) 01/21/17 04:20 Eos # 0.4 x10^3/uL (0.0-0.2) H 01/21/17 04:20 Baso # 0.1 X10^3/uL (0.0-0.1) 01/21/17 04:20 Absolute Nucleated RBC 0.0 /100WBC 01/21/17 04:20 Total Counted 100 01/17/17 04:20 Neutrophils % (Manual) 70 % (39-76) 01/17/17 04:20 Lymphocytes % (Manual) 24 % (13-43) 01/17/17 04:20 Monocytes % (Manual) 2 % (4-9) L 01/17/17 04:20 Eosinophils % (Manual) 4 % (0-6) 01/17/17 04:20 Plt Morphology Comment Normal (NORMAL) 01/21/17 04:20 RBC Morphology Normal (NORMAL) 01/21/17 04:20 Sodium 138 mmol/L (136-145) 01/21/17 04:20 Corrected Sodium 139 mmol/L (136-145) 01/21/17 04:20 Potassium 4.1 mmol/L (3.5-5.1) 01/21/17 04:20 Chloride 103 mmol/L (98-107) 01/21/17 04:20 Carbon Dioxide 20.2 mmol/L (21-32) L 01/21/17 04:20 BUN 29 mg/dL (7-18) H 01/21/17 04:20 Creatinine 2.15 mg/dL (0.70-1.30) H 01/21/17 04:20 Est GFR (MDRD) Af Amer 40 (>60) L 01/21/17 04:20 Est GFR (MDRD) Non-Af 33 (>60) L 01/21/17 04:20 Glucose 138 mg/dL (65-99) H 01/21/17 04:20 Calcium 9.7 mg/dL (8.5-10.1) 01/21/17 04:20 Corrected Calcium TNP 01/21/17 04:20 Magnesium 1.8 mg/dL (1.7-2.9) 01/16/17 21:25 Total Bilirubin 0.20 mg/dL (0.2-1.0) 01/21/17 04:20 AST 34 Units/L (15-37) 01/21/17 04:20 ALT 48 Units/L (12-78) 01/21/17 04:20 Alkaline Phosphatase 273 Units/L (46-116) H 01/21/17 04:20 Total Protein 8.3 g/dL (6.4-8.2) H 01/21/17 04:20 Albumin 3.4 g/dL (3.4-5.0) 01/21/17 04:20 Globulin 4.9 g/dL (2.5-4.5) H 01/21/17 04:20 Albumin/Globulin Ratio 0.7 Ratio (1.1-2.1) L 01/21/17 04:20 Free T4 1.22 ng/dL (0.76-1.46) 01/16/17 21:25 TSH 3rd Generation 1.195 uIU/mL (0.358-3.74) 01/16/17 21:25 Specimen Type Clean catch urine 01/16/17 21:14 Urine Color Red (YELLOW) 01/16/17 21:14 Urine Appearance Cloudy (CLEAR) 01/16/17 21:14 Urine pH 5.0 (5.0 - 8.0) 01/16/17 21:14 Ur Specific [place] 1.010 (1.000-1.030) 01/16/17 21:14 Urine Protein 3+ (NEGATIVE) 01/16/17 21:14 Urine Glucose (UA) 2+ (NEGATIVE) 01/16/17 21:14 Urine Ketones Negative (NEGATIVE) 01/16/17 21:14 Urine Occult Blood 5+ (NEGATIVE) 01/16/17 21:14 Urine Nitrite Negative (NEGATIVE) 01/16/17 21:14 Urine Bilirubin Negative (NEGATIVE) 01/16/17 21:14 Urine Urobilinogen Normal (NORMAL) 01/16/17 21:14 Ur Leukocyte Esterase 3+ (NEGATIVE) 01/16/17 21:14 Urine RBC Tntc /HPF (NEGATIVE) 01/16/17 21:14 Urine WBC Tntc /HPF (NEGATIVE) 01/16/17 21:14 Ur Squamous Epith Cells Rare /HPF (NEGATIVE) 01/16/17 21:14 Urine Bacteria 2+ /HPF (NEGATIVE) 01/16/17 21:14 Ur Culture Indicated? Yes/culture set up 01/16/17 21:14 - Plan (1) ARF (acute renal failure) Status: Acute Qualifiers: Acute renal failure type: A Plan: iv hydration, CMP this morning reveals sodium within normal limits potassium within normal limits BUE and creatinine improving to 29/2.15. REPEAT AM LABS (2) Depression Status: Acute Qualifiers: Depression Type: D Major depression recurrence: M Active/Remission status : A Major depression episode severity: M Psychotic features: P Trimester: T (3) UTI (urinary tract infection) Status: Resolved Qualifiers: Urinary tract infection type: U Hematuria presence: H Indwelling urinary catheter type: I Encounter type: E Plan: US BLADDER R/O OBSTRUCTION, POST VOID RETENTION (4) Hyponatremia Status: Acute Plan: hold ssri, iv hydration, repeat am labs. CT CHEST DUE TO SMOKER WITH GAN , R/O SCC
--- NOTE | 2017-01-21 15:26 | CT ---
HISTORY: Fever, shortness of breath Study: CT chest without contrast Comparison: None Technique: Axial non contrast images with coronal reformats. Dose reduction procedures were used wit h MA/kv adjusted for body size. The examination is limited by the lack of intravenous contrast. Findings: Examination of the mediastinum demonstrated no definite evidence for mediastinal masses, lymphadenop athy, or hilar lymphadenopathy. No pleural effusions are identified. No chest wall or axillary abnor mality is identified. Those portions of the upper abdominal organs visualized were within normal fuentes its to the limitations of an unenhanced examination. Examination of the lung augustine demonstrated hyp erinflation to be present. No alveolar infiltrates, areas of consolidation, peribronchial thickening or bronchiectasis is identified. There are subtle patchy infiltrates peripherally in the right uppe r and right middle lobes likely inflammatory in origin however follow up CT until clear is recommend ed. Additionally best visualized on series 4, image 30 there is a 4.6 millimeter right upper lobe pu lmonary nodule which will require CT follow-up in 6 months to assess for stability. No infiltrates o r nodules are identified on the left. IMPRESSION: Subtle patchy infiltrates in the right upper and right middle lobe likely inflammatory or infectious in origin. Follow up until clear is recommended. Right upper lobe nodule for which CT follow up in 6 months is recommended to assess for stability. Reported By:
[2017-01-21] MEDS: SNACK - Diabetic Appropriate PO SCH (21:52)
[2017-01-21] MEDS: FLOMAX PO SCH (21:55)
[2017-01-21] MEDS: LIPITOR TAB 10 MG PO SCH (21:57)
[2017-01-21] MEDS: LANTUS SC SCH (21:58)
[2017-01-21] MEDS: ROCEPHIN VIAL 1 GM 1 GM in NS 50 ML IV + SPIKE MINIBAG* 50 ML IV SCH (21:59)
[2017-01-21] MEDS: REMERON PO SCH (22:00)
[2017-01-21] MEDS: NS 1000 ML 1,000 ML IV PRN (22:01)
[2017-01-22 05:23] LABS: BASOPHILS # (AUTO) 0.1 X10^3/uL (0.0-0.1); BASOPHILS % (AUTO) 1.3 % (0.2-1.0); EOSINOPHILS # (AUTO) 0.2 x10^3/uL (0.0-0.2); EOSINOPHILS % (AUTO) 4.1 % (0.9-2.9); HEMATOCRIT 27.3 % (42.0-54.0); HEMOGLOBIN 9.2 g/dL (13.5-18.0); LYMPHOCYTES # (AUTO) 1.6 X10^3/uL (1.3-2.9); LYMPHOCYTES % (AUTO) 26.4 % (21.0-51.0); MEAN CORPUSCULAR HEMOGLOBIN 26.6 pg (27.0-34.0); MEAN CORPUSCULAR HGB CONC 33.6 g/dL (33.0-35.0); MEAN CORPUSCULAR VOLUME 79.3 fL (80.0-100.0); MEAN PLATELET VOLUME 8.3 fL (7.4-11.0); MONOCYTES # (AUTO) 0.5 x10^3/uL (0.3-0.8); MONOCYTES % (AUTO) 7.8 % (0.0-13.0); NEUTROPHILS # (AUTO) 3.6 x10^3/uL (2.2-4.8); NEUTROPHILS % (AUTO) 60.4 % (42.0-75.0); PLATELET COUNT 224 X10^3/uL (150.0-450.0); RED BLOOD COUNT 3.44 X10^6/uL (4.7-6.0); RED CELL DISTRIBUTION WIDTH 17.6 % (11.6-16.5); WHITE BLOOD COUNT 5.9 X10^3/uL (3.6-10.0)
[2017-01-22 05:32] LABS: ALANINE AMINOTRANSFERASE 39 Units/L (12-78); ALBUMIN 3.4 g/dL (3.4-5.0); ALKALINE PHOSPHATASE 250 Units/L (46-116); ASPARTATE AMINO TRANSFERASE 30 Units/L (15-37); BLOOD UREA NITROGEN 29 mg/dL (7-18); CALCIUM 8.9 mg/dL (8.5-10.1); CARBON DIOXIDE 19.7 mmol/L (21-32); CHLORIDE 104 mmol/L (98-107); CREATININE 2.01 mg/dL (0.70-1.30); GLUCOSE 105 mg/dL (65-99); SODIUM 138 mmol/L (136-145); TOTAL PROTEIN 7.9 g/dL (6.4-8.2); eGFR BLACK RACES 43 (>60); eGFR NON BLACK RACES 35 (>60)
[2017-01-22] MEDS ORDERED: GLUCOPHAGE ONE ×2 (08:21→21:45)
[2017-01-22] MEDS ORDERED: TOPROL XL PO ONE (08:25)
[2017-01-22] MEDS: GLUCOPHAGE PO SCH ×2 (08:56→22:12)
[2017-01-22] MEDS: NORVASC TAB 5 MG PO SCH (08:57)
[2017-01-22] MEDS: CLARITIN PO SCH (08:57)
[2017-01-22] MEDS: PriLOSEC PO SCH (08:57)
[2017-01-22] MEDS: KLONOPIN TAB 0.5 MG PO PRN ×2 (08:57→22:13)
[2017-01-22] MEDS: CIPRO TAB 500 MG PO SCH ×2 (08:57→22:12)
[2017-01-22] MEDS: AMARYL TAB 4 MG PO SCH ×2 (08:57→22:12)
[2017-01-22] MEDS: ASPIRIN EC 81 MG PO SCH (08:57)
[2017-01-22] MEDS: TOPROL XL PO SCH (08:57)
[2017-01-22] MEDS: PROSCAR PO SCH (08:57)
[2017-01-22] MEDS: NORCO 5/325 MG TAB PO PRN ×2 (08:58→22:14)
[2017-01-22] MEDS: ALBUMIN HUMAN 25%- 100ML 100 ML IV SCH (08:59)
[2017-01-22] MEDS: HumuLIN R SUBCUT PRN (11:55)
[2017-01-22] MEDS: NS 1000 ML 1,000 ML IV PRN (17:58)
--- NOTE | 2017-01-22 18:56 | PCM.PROG ---
Progress Note - Progress Note for Day of Date: 01/22/17 - Subjective Subjective: PATIENT IS ADMITTED FOR RENAL FAILURE AND HYPONATREMIA. HE CONTINUES ON IV FLUIDS OF NS AT 50MLS/HR. CMP this morning reveals sodium within normal limits potassium within normal limits BUN and creatinine improving. WE WILL CONTINUE TO HYDRATE WITH IV FLUIDS AND MONITOR LABS IN AM. PLAN TO D/C BACK TO [facility] WITH LABS CONTINUE TO IMPROVE - Past Medical Family Social History Past Med/Fam/Surg Hx: No changes since H&P Allergies: Allergies Codeine Allergy (Verified 11/30/16 08:29) - Review of Systems ROS: No change since H&P - Vital Signs and I&O's Vital Signs: Temperature 98 F Pulse Rate [Right Brachial] 72 Pulse Rate [Left Brachial] 75 Respiratory Rate 20 Blood Pressure [Right Arm] 129/62 Blood Pressure [Left Arm] 175/72 Blood Pressure 123/60 O2 Sat by Pulse Oximetry 98 Intake and Output: Intake & Output 01/20/17 01/21/17 01/22/17 01/23/17 11:59 11:59 11:59 11:59 Intake Total 4203 3165 1965 600 Output Total 2350 3395 2300 600 Balance 1853 -230 -335 0 - Physical Exam Oriented: Normal Eyes: Normal Ear: Normal Nose: Normal Throat: Normal Respiratory: Wheezes (mild lower exp wheezes) Cardiovascular: Normal : Normal Auscultation: Bowel Sounds: Normal Tenderness: Normal Skin: Decreased Turgur Musculoskeletal: Back:Lumbar Psychiatric: Normal Mood Description: Calm Affect: Quiet Speech Pattern: Clear, Appropriate - Laboratory and Diagnostics Result Diagrams: 01/22/17 03:50 01/22/17 03:50 Labs: 01/16/17 21:35 Blood Blood Culture - Final 01/16/17 21:25 Blood Blood Culture - Final 01/16/17 21:14 Urine,Clean Catch Urine Culture - Final Laboratory WBC 5.9 X10^3/uL (3.6-10.0) 01/22/17 03:50 RBC 3.44 X10^6/uL (4.7-6.0) L 01/22/17 03:50 Hgb 9.2 g/dL (13.5-18.0) L 01/22/17 03:50 Hct 27.3 % (42.0-54.0) L 01/22/17 03:50 MCV 79.3 fL (80.0-100.0) L 01/22/17 03:50 MCH 26.6 pg (27.0-34.0) L 01/22/17 03:50 MCHC 33.6 g/dL (33.0-35.0) 01/22/17 03:50 RDW 17.6 % (11.6-16.5) H 01/22/17 03:50 Plt Count 224 X10^3/uL (150.0-450.0) 01/22/17 03:50 Plt Count Comment Adequate (ADEQUATE) 01/21/17 04:20 MPV 8.3 fL (7.4-11.0) 01/22/17 03:50 Neut % 60.4 % (42.0-75.0) 01/22/17 03:50 Lymph % 26.4 % (21.0-51.0) 01/22/17 03:50 [place] % 7.8 % (0.0-13.0) 01/22/17 03:50 Eos % 4.1 % (0.9-2.9) H 01/22/17 03:50 Baso % 1.3 % (0.2-1.0) H 01/22/17 03:50 Neut # 3.6 x10^3/uL (2.2-4.8) 01/22/17 03:50 Lymph # 1.6 X10^3/uL (1.3-2.9) 01/22/17 03:50 [place] # 0.5 x10^3/uL (0.3-0.8) 01/22/17 03:50 Eos # 0.2 x10^3/uL (0.0-0.2) 01/22/17 03:50 Baso # 0.1 X10^3/uL (0.0-0.1) 01/22/17 03:50 Absolute Nucleated RBC 0.0 /100WBC 01/22/17 03:50 Total Counted 100 01/17/17 04:20 Neutrophils % (Manual) 70 % (39-76) 01/17/17 04:20 Lymphocytes % (Manual) 24 % (13-43) 01/17/17 04:20 Monocytes % (Manual) 2 % (4-9) L 01/17/17 04:20 Eosinophils % (Manual) 4 % (0-6) 01/17/17 04:20 Plt Morphology Comment Normal (NORMAL) 01/21/17 04:20 RBC Morphology Normal (NORMAL) 01/21/17 04:20 Sodium 138 mmol/L (136-145) 01/22/17 03:50 Corrected Sodium TNP 01/22/17 03:50 Potassium 3.7 mmol/L (3.5-5.1) 01/22/17 03:50 Chloride 104 mmol/L (98-107) 01/22/17 03:50 Carbon Dioxide 19.7 mmol/L (21-32) L 01/22/17 03:50 BUN 29 mg/dL (7-18) H 01/22/17 03:50 Creatinine 2.01 mg/dL (0.70-1.30) H 01/22/17 03:50 Est GFR (MDRD) Af Amer 43 (>60) L 01/22/17 03:50 Est GFR (MDRD) Non-Af 35 (>60) L 01/22/17 03:50 Glucose 105 mg/dL (65-99) H 01/22/17 03:50 Calcium 8.9 mg/dL (8.5-10.1) 01/22/17 03:50 Corrected Calcium TNP 01/22/17 03:50 Magnesium 1.8 mg/dL (1.7-2.9) 01/16/17 21:25 Total Bilirubin 0.30 mg/dL (0.2-1.0) 01/22/17 03:50 AST 30 Units/L (15-37) 01/22/17 03:50 ALT 39 Units/L (12-78) 01/22/17 03:50 Alkaline Phosphatase 250 Units/L (46-116) H 01/22/17 03:50 Total Protein 7.9 g/dL (6.4-8.2) 01/22/17 03:50 Albumin 3.4 g/dL (3.4-5.0) 01/22/17 03:50 Globulin 4.5 g/dL (2.5-4.5) 01/22/17 03:50 Albumin/Globulin Ratio 0.8 Ratio (1.1-2.1) L 01/22/17 03:50 Free T4 1.22 ng/dL (0.76-1.46) 01/16/17 21:25 TSH 3rd Generation 1.195 uIU/mL (0.358-3.74) 01/16/17 21:25 Specimen Type Clean catch urine 01/16/17 21:14 Urine Color Red (YELLOW) 01/16/17 21:14 Urine Appearance Cloudy (CLEAR) 01/16/17 21:14 Urine pH 5.0 (5.0 - 8.0) 01/16/17 21:14 Ur Specific [place] 1.010 (1.000-1.030) 01/16/17 21:14 Urine Protein 3+ (NEGATIVE) 01/16/17 21:14 Urine Glucose (UA) 2+ (NEGATIVE) 01/16/17 21:14 Urine Ketones Negative (NEGATIVE) 01/16/17 21:14 Urine Occult Blood 5+ (NEGATIVE) 01/16/17 21:14 Urine Nitrite Negative (NEGATIVE) 01/16/17 21:14 Urine Bilirubin Negative (NEGATIVE) 01/16/17 21:14 Urine Urobilinogen Normal (NORMAL) 01/16/17 21:14 Ur Leukocyte Esterase 3+ (NEGATIVE) 01/16/17 21:14 Urine RBC Tntc /HPF (NEGATIVE) 01/16/17 21:14 Urine WBC Tntc /HPF (NEGATIVE) 01/16/17 21:14 Ur Squamous Epith Cells Rare /HPF (NEGATIVE) 01/16/17 21:14 Urine Bacteria 2+ /HPF (NEGATIVE) 01/16/17 21:14 Ur Culture Indicated? Yes/culture set up 01/16/17 21:14 - Plan (1) ARF (acute renal failure) Status: Acute Qualifiers: Acute renal failure type: A Plan: iv hydration, CMP this morning reveals sodium within normal limits potassium within normal limits BUE and creatinine improving to 29/2.15. REPEAT AM LABS (2) Depression Status: Acute Qualifiers: Depression Type: D Major depression recurrence: M Active/Remission status : A Major depression episode severity: M Psychotic features: P Trimester: T (3) UTI (urinary tract infection) Status: Resolved Qualifiers: Urinary tract infection type: U Hematuria presence: H Indwelling urinary catheter type: I Encounter type: E Plan: US BLADDER R/O OBSTRUCTION, POST VOID RETENTION (4) Hyponatremia Status: Acute Plan: hold ssri, iv hydration, repeat am labs. CT CHEST DUE TO SMOKER WITH GAN , R/O SCC
[2017-01-22] MEDS: SNACK - Diabetic Appropriate PO SCH (22:11)
[2017-01-22] MEDS: FLOMAX PO SCH (22:12)
[2017-01-22] MEDS: LANTUS SC SCH (22:12)
[2017-01-22] MEDS: ROCEPHIN VIAL 1 GM 1 GM in NS 50 ML IV + SPIKE MINIBAG* 50 ML IV SCH (22:13)
[2017-01-22] MEDS: LIPITOR TAB 10 MG PO SCH (22:13)
[2017-01-22] MEDS: REMERON PO SCH (22:13)
[2017-01-23 06:13] LABS: ALANINE AMINOTRANSFERASE 40 Units/L (12-78); ALBUMIN 3.6 g/dL (3.4-5.0); ALKALINE PHOSPHATASE 238 Units/L (46-116); ASPARTATE AMINO TRANSFERASE 27 Units/L (15-37); BLOOD UREA NITROGEN 28 mg/dL (7-18); CALCIUM 9.2 mg/dL (8.5-10.1); CARBON DIOXIDE 19.1 mmol/L (21-32); CHLORIDE 106 mmol/L (98-107); CREATININE 1.96 mg/dL (0.70-1.30); GLUCOSE 71 mg/dL (65-99); SODIUM 141 mmol/L (136-145); TOTAL PROTEIN 8.2 g/dL (6.4-8.2); eGFR BLACK RACES 44 (>60); eGFR NON BLACK RACES 36 (>60)
[2017-01-23 06:21] LABS: BASOPHILS # (AUTO) 0.1 X10^3/uL (0.0-0.1); BASOPHILS % (AUTO) 1.2 % (0.2-1.0); EOSINOPHILS # (AUTO) 0.2 x10^3/uL (0.0-0.2); EOSINOPHILS % (AUTO) 3.8 % (0.9-2.9); HEMATOCRIT 28.1 % (42.0-54.0); HEMOGLOBIN 9.6 g/dL (13.5-18.0); LYMPHOCYTES # (AUTO) 1.5 X10^3/uL (1.3-2.9); LYMPHOCYTES % (AUTO) 29.7 % (21.0-51.0); MEAN CORPUSCULAR HEMOGLOBIN 27.1 pg (27.0-34.0); MEAN CORPUSCULAR VOLUME 79.6 fL (80.0-100.0); MEAN PLATELET VOLUME 8.4 fL (7.4-11.0); MONOCYTES # (AUTO) 0.3 x10^3/uL (0.3-0.8); MONOCYTES % (AUTO) 6.8 % (0.0-13.0); NEUTROPHILS % (AUTO) 58.5 % (42.0-75.0); PLATELET COUNT 223 X10^3/uL (150.0-450.0); RED BLOOD COUNT 3.53 X10^6/uL (4.7-6.0); RED CELL DISTRIBUTION WIDTH 17.5 % (11.6-16.5); WHITE BLOOD COUNT 5.1 X10^3/uL (3.6-10.0)
[2017-01-23] MEDS ORDERED: TOPROL XL PO ONE (07:37)
[2017-01-23] MEDS ORDERED: GLUCOPHAGE ONE (07:37)
[2017-01-23] MEDS: ALBUMIN HUMAN 25%- 100ML 100 ML IV SCH (08:36)
[2017-01-23] MEDS: GLUCOPHAGE PO SCH (08:37)
[2017-01-23] MEDS: NORVASC TAB 5 MG PO SCH (08:37)
[2017-01-23] MEDS: TOPROL XL PO SCH (08:38)
[2017-01-23] MEDS: ASPIRIN EC 81 MG PO SCH (08:38)
[2017-01-23] MEDS: PriLOSEC PO SCH (08:38)
[2017-01-23] MEDS: CIPRO TAB 500 MG PO SCH (08:38)
[2017-01-23] MEDS: PROSCAR PO SCH (08:38)
[2017-01-23] MEDS: CLARITIN PO SCH (08:38)
[2017-01-23] MEDS: AMARYL TAB 4 MG PO SCH (08:39)
[2017-01-23] MEDS: HumuLIN R SUBCUT PRN (11:54)
[2017-01-23 12:06] VITALS: BP 133/63
--- NOTE | 2017-01-23 14:19 | PCM.DCPLAN ---
Discharge Summary - Admission Date Date of Admission: 01/16/17 - Discharge Date Discharge Date: 01/23/17 - Admission Diagnoses (1) ARF (acute renal failure) Status: Acute (2) Depression Status: Acute (3) UTI (urinary tract infection) Status: Resolved (4) Hyponatremia Status: Acute - Discharge Medications Discharge Medications: Ciprofloxacin HCl [Cipro] 250 mg PO BID 01/16/17 [History] - Hospital Course Vital Signs: Temperature 98.1 F Pulse Rate [Right Brachial] 56 Pulse Rate [Left Brachial] 75 Respiratory Rate 20 Blood Pressure [Right Arm] 133/63 Blood Pressure [Left Arm] 175/72 Blood Pressure 123/60 O2 Sat by Pulse Oximetry 100 Latest Lab Results: Laboratory Last Values WBC 5.1 X10^3/uL (3.6-10.0) 01/23/17 04:40 RBC 3.53 X10^6/uL (4.7-6.0) L 01/23/17 04:40 Hgb 9.6 g/dL (13.5-18.0) L 01/23/17 04:40 Hct 28.1 % (42.0-54.0) L 01/23/17 04:40 MCV 79.6 fL (80.0-100.0) L 01/23/17 04:40 MCH 27.1 pg (27.0-34.0) 01/23/17 04:40 MCHC 34.0 g/dL (33.0-35.0) 01/23/17 04:40 RDW 17.5 % (11.6-16.5) H 01/23/17 04:40 Plt Count 223 X10^3/uL (150.0-450.0) 01/23/17 04:40 Plt Count Comment Adequate (ADEQUATE) 01/21/17 04:20 MPV 8.4 fL (7.4-11.0) 01/23/17 04:40 Neut % 58.5 % (42.0-75.0) 01/23/17 04:40 Lymph % 29.7 % (21.0-51.0) 01/23/17 04:40 [place] % 6.8 % (0.0-13.0) 01/23/17 04:40 Eos % 3.8 % (0.9-2.9) H 01/23/17 04:40 Baso % 1.2 % (0.2-1.0) H 01/23/17 04:40 Neut # 3.0 x10^3/uL (2.2-4.8) 01/23/17 04:40 Lymph # 1.5 X10^3/uL (1.3-2.9) 01/23/17 04:40 Drew # 0.3 x10^3/uL (0.3-0.8) 01/23/17 04:40 Eos # 0.2 x10^3/uL (0.0-0.2) 01/23/17 04:40 Baso # 0.1 X10^3/uL (0.0-0.1) 01/23/17 04:40 Absolute Nucleated RBC 0.1 /100WBC 01/23/17 04:40 Total Counted 100 01/17/17 04:20 Neutrophils % (Manual) 70 % (39-76) 01/17/17 04:20 Lymphocytes % (Manual) 24 % (13-43) 01/17/17 04:20 Monocytes % (Manual) 2 % (4-9) L 01/17/17 04:20 Eosinophils % (Manual) 4 % (0-6) 01/17/17 04:20 Plt Morphology Comment Normal (NORMAL) 01/21/17 04:20 RBC Morphology Normal (NORMAL) 01/21/17 04:20 Sodium 141 mmol/L (136-145) 01/23/17 04:40 Corrected Sodium TNP 01/23/17 04:40 Potassium 3.6 mmol/L (3.5-5.1) 01/23/17 04:40 Chloride 106 mmol/L (98-107) 01/23/17 04:40 Carbon Dioxide 19.1 mmol/L (21-32) L 01/23/17 04:40 BUN 28 mg/dL (7-18) H 01/23/17 04:40 Creatinine 1.96 mg/dL (0.70-1.30) H 01/23/17 04:40 Est GFR (MDRD) Af Amer 44 (>60) L 01/23/17 04:40 Est GFR (MDRD) Non-Af 36 (>60) L 01/23/17 04:40 Glucose 71 mg/dL (65-99) 01/23/17 04:40 Calcium 9.2 mg/dL (8.5-10.1) 01/23/17 04:40 Corrected Calcium TNP 01/23/17 04:40 Magnesium 1.8 mg/dL (1.7-2.9) 01/16/17 21:25 Total Bilirubin 0.20 mg/dL (0.2-1.0) 01/23/17 04:40 AST 27 Units/L (15-37) 01/23/17 04:40 ALT 40 Units/L (12-78) 01/23/17 04:40 Alkaline Phosphatase 238 Units/L (46-116) H 01/23/17 04:40 Total Protein 8.2 g/dL (6.4-8.2) 01/23/17 04:40 Albumin 3.6 g/dL (3.4-5.0) 01/23/17 04:40 Globulin 4.6 g/dL (2.5-4.5) H 01/23/17 04:40 Albumin/Globulin Ratio 0.8 Ratio (1.1-2.1) L 01/23/17 04:40 Free T4 1.22 ng/dL (0.76-1.46) 01/16/17 21:25 TSH 3rd Generation 1.195 uIU/mL (0.358-3.74) 01/16/17 21:25 Specimen Type Clean catch urine 01/16/17 21:14 Urine Color Red (YELLOW) 01/16/17 21:14 Urine Appearance Cloudy (CLEAR) 01/16/17 21:14 Urine pH 5.0 (5.0 - 8.0) 01/16/17 21:14 Ur Specific [place] 1.010 (1.000-1.030) 01/16/17 21:14 Urine Protein 3+ (NEGATIVE) 01/16/17 21:14 Urine Glucose (UA) 2+ (NEGATIVE) 01/16/17 21:14 Urine Ketones Negative (NEGATIVE) 01/16/17 21:14 Urine Occult Blood 5+ (NEGATIVE) 01/16/17 21:14 Urine Nitrite Negative (NEGATIVE) 01/16/17 21:14 Urine Bilirubin Negative (NEGATIVE) 01/16/17 21:14 Urine Urobilinogen Normal (NORMAL) 01/16/17 21:14 Ur Leukocyte Esterase 3+ (NEGATIVE) 01/16/17 21:14 Urine RBC Tntc /HPF (NEGATIVE) 01/16/17 21:14 Urine WBC Tntc /HPF (NEGATIVE) 01/16/17 21:14 Ur Squamous Epith Cells Rare /HPF (NEGATIVE) 01/16/17 21:14 Urine Bacteria 2+ /HPF (NEGATIVE) 01/16/17 21:14 Ur Culture Indicated? Yes/culture set up 01/16/17 21:14 Hospital Course: Condition is a 66-year-old white male who was admitted from [facility] with acute on chronic renal insufficiency. Patient has experienced hyponatremia and renal insufficiency with a history of diuretic treatment. Patient is currently on MANUEL inhibitor for blood pressure control and an SSRI for depression. On admission patient's PUVA and was 47, creatinine 3.70, sodium 134. Patient was treated gently over several days with IV fluids and hydration. We stopped lisinopril and Celexa. Patient was put on Norvasc 5 mg by mouth daily for blood pressure control. Patient's sodium resumed to normal 141 on discharge. Patient's BP and 28, creatinine 1.96 on discharge. Patient feels more awake and alert increased strength. Patient did have a CT of his chest while inpatient due to his history of hyponatremia and tobacco abuse. Patient's CT of his chest did reveal a right upper lobe nodule 4.6 mm in size radiologist recommends six-month follow-up. We discharge patient back to the shelter today encouraged to continue by mouth hydration and the seeing the Celexa and the lisinopril. Patient will continue amlodipine for blood pressure control. Plan to repeat CMP in 1 week and follow-up with Dr. Dominguez on a routine basis. - Discharge Plan Disposition: HOME, SELF-CARE Condition: Stable - Follow ups/Referrals Follow ups/Referrals: DHRUV DOMINGUEZ [Primary Care Provider] - 1 WEEK - Instructions Instructions: Acute Kidney Injury, Hyponatremia, [id number], Major Depressive Disorder Additional Instructions: push fluids 64 oz water, gatorade, juice, lemonade daily in addition to meals holding manuel, d/c home on current inpt meds repeat cbc cmp 1 week Forms: Patient Portal
== END 2017-01-23 14:30 | DRG 683 ==
LOC: MED/SURG 20:14 → OBSVTOIN 01-18 14:46
PROVIDERS: ADMIT Internal Medicine; ATTEND Internal Medicine
DX: N17.8 Other acute kidney failure (principal); E87.1 Hypo-osmolality and hyponatremia; R41.82 Altered mental status, unspecified; R94.8 Abnormal results of function studies of other organs and systems; I10 Essential (primary) hypertension; E86.0 Dehydration; N39.0 Urinary tract infection, site not specified; R53.1 Weakness; F32.89 Other specified depressive episodes; R91.1 Solitary pulmonary nodule; R26.89 Other abnormalities of gait and mobility; R68.89 Other general symptoms and signs
CPT/HCPCS: 36415; 71010; 71020; 71250; 76856; 80048; 80053; 81001; 83735; 84439; 84443; 85025; 87040; 87086; 97535; A4222; G8978; G8979; G8987; G8988; P9047; S0138; G0378; J0696; J1815